=== PATIENT | male | born 1955 | race Caucasian/White ===

== ENCOUNTER 2019-10-29 13:50 | Outpatient (CLI) | payer OTHER, SELFPAY ==
[2019-10-29 15:53] LABS: Basophils # 0.1 10^3/uL (0.0-0.1); Eosinophils # 0.5 10^3/uL (0.0-0.8); Eosinophils % 3.5 %; Hematocrit 46.8 % (42.0-52.0); Hemoglobin 15.2 g/dL (11.7-16.6); Lymphocytes # 3.5 10^3/uL (0.8-4.8); Lymphocytes % 23.6 %; Mean Corpuscular HGB Conc 32.5 g/dL (30.0-36.0); Mean Corpuscular Hemoglobin 30.4 pg (28.0-34.0); Mean Corpuscular Volume 93.6 fL (80-94); Mean Platelet Volume 10.7 fL (7.4-10.4); Monocytes # 1.1 10^3/uL (0.2-0.9); Monocytes % 7.6 %; Neutrophils # 9.4 10^3/uL (1.8-7.7); Neutrophils % 63.8 %; Nucleated Red Blood Cells % 0 %; Platelet Count 276 10^3/cmm (130-400); Red Cell Distribution Width 16.2 % (12.1-15.1); White Blood Count 14.7 10^3/uL (4.0-10.0)
[2019-10-29 16:14] LABS: Alanine Aminotransferase 11 U/L (0-41); Albumin Level 4.4 g/dL (3.5-5.2); Alkaline Phosphatase 103 IU/L (40-130); Anion Gap 13.1 (5-19); Aspartate Amino Transferase 16 U/L (0-40); Blood Urea Nitrogen 24 mg/dL (8-23); Calcium 10.2 mg/Dl (8.8-10.2); Carbon Dioxide 26 mmol/L (22-29); Chloride 101 mmol/L (98-107); Globulin 3.3 g/dL (1.3-4.6); Glomerular Filtration Rate 60.8 mL/min (90-130); Glucose 86 mg/dL (74-106); Potassium 5.1 mmol/L (3.5-5.1); Sodium 135 mmol/L (136-145); Total Bilirubin 0.3 mg/dL (0.15-1.2); Total Protein 7.7 g/dL (6.6-8.7)
== END 2019-10-29 13:51 | disposition home or self-care (01) ==
LOC: ONCMED 14:46
PROVIDERS: Family Provider Emergency Medicine Emergency Medical Services; PCP Emergency Medicine Emergency Medical Services; Visit Provider Internal Medicine Hematology & Oncology
DX: C79.51 Secondary malignant neoplasm of bone (principal); C65.1 Malignant neoplasm of right renal pelvis
CPT/HCPCS: 80053; 85025

== ENCOUNTER 2019-10-30 09:40 | Outpatient (CLI) | payer OTHER, SELFPAY ==
--- NOTE | 2019-10-30 15:13 | ONC FU_ITS ---
Dr. Cardoza follow up note Patient: Bart Contreras Unit #: [id number]: 1955 Dicatated By: Rosi Cardoza M.D.Date of Visit:Oct 30, 2019 Onc Med Follow-up/Prog Note History of Present Illness: Mr. Bart Contreras, is a 63-year-old gentleman with history of off and on chronic back pain later on developed right flank pain subsequently in June 2019 started having off and on hematuria patient underwent CT scan of abdomen pelvis which showed significant filling defect of the right kidney patient underwent retrograde and ureteroscopy that showed high-grade, invasive urothelial carcinoma patient was referred to Dr. Gillis at [facility] in [place] for robotic surgery and on 08/20/2019 he underwent right nephroureterectomy and final pathology report showed 5 x 6 x 5 x 2 x 0.6 cm invasive urothelial carcinoma, high-grade, with clear surgical margins, lymphovascular invasion was seen. But tumor invades into the renal parenchyma , pT3 No lymph node was evaluated pNx ,Mx As per patient for the last one month or so now he got progressive mid back pain and MRI scan of spine is under consideration. Denies any hematuria denies any jaundice denies any hemoptysis or hematemesis denies any diarrhea or constipation, appetite is good. Denies any lower extremity numbness or focal weakness. Denies any urine or stool incontinence. 50+ year history of smoking still active. Patient did not go for MRI scan but CT PET scan done on 10/20/2019 showed multiple, lytic FDG positive osseous metastatic disease, T7 lesion has high likelihood of impending pathological fracture. Multifocal hepatic metastatic disease. Malignant adenopathy in the left supraclavicular, mediastinal, bilateral retroperitoneal territories Came for follow-up, complaining of mid back pain 3-4 on the scale of 1-10 now being controlled by anti-inflammatory and muscle relaxant patient has seen chiropractor and said it did help him. Denies any urine or stool incontinence denies any lower extremity weakness denies any hemoptysis hematemesis denies any jaundice denies any focal weakness. Medications: Amitriptyline HCl 1 Tablet (of 25 mg) Oral at bedtime PRN, Aspirin Adult 1 Tablet (of 325 mg) Oral daily, Atorvastatin Calcium 1 Tablet (of 80 mg) Oral daily, Methocarbamol 1 Tablet (of 500 mg) Oral t.i.d. PRN, Metoprolol Tartrate 1 Tablet (of 50 mg) Oral daily, Naproxen 1 Tablet (of 500 mg) Oral b.i.d. Allergies: Penicillins Review of Systems: Constitutional - Appetite is poor and weight is decreasing. No fever, chills, hot flashes, or night sweats. Energy level is poor, ENMT - Positive for sinus congestion/drainage. No mouth sores. No sore throat or difficulty swallowing, Hematologic/Lymphatic - Pt reports easy bruising, Respiratory - Positive for shortness of breath. No cough. No pleuritic pain or hemoptysis, Cardiovascular - No angina pain. No palpitations, Gastrointestinal - No nausea or vomiting. No heartburn or acid reflux. No diarrhea. Positive for constipation. No blood in the stool or black stools, Genitourinary (M) - No dysuria or hematuria. Positive for urinary frequency. No urgency or incontinence, Musculoskeletal - No joint or bone pain, Neurologic - No headache. Positive for occasional dizziness. No numbness/paresthesias or other focal neurologic symptoms, Psychiatric - Positive for depression and insomnia. Vital Signs: Performed on Oct 30, 2019 12:49 Height - 68.00 in Weight - 106.0 lbs (LOW) BSA - 1.56 sq.m BMI - 16.12 (LOW) Temperature - 97.8 F (LOW) Pulse - 84 /min Respiration - 20 /min BP - 116/73 mm(hg) O2 Sat - 100 % Pain - 6 Performance Status: 1 - No physically strenuous activity, but ambulatory and able to carry out light or sedentary work (e.g. office work, light house work). (ECOG) Physical Examination: ENMT - No oral exudates, ulcers, masses, thrush or mucositis. Oropharynx clear. Tongue normal, Respiratory - Lungs are clear to auscultation without rhonchi or wheezing, Cardiovascular - Regular rate and rhythm of heart, Abdomen - Non-tender, non-distended,Good bowel sounds. No guarding or rebound tenderness. No pulsatile masses, Extremities - no edema. Lab/Imaging: Test performed on Oct 29, 2019 13:50 Glucose 86 mg/dL BUN 24 mg/dL Creatinine 1.2 mg/dL Cr Clearance (Est) 41.7400 mL/min Sodium 135 mmol/L Potassium 5.1 mmol/L Chloride 101 mmol/L CO2 26 mmol/L Calcium 10.2 mg/dL Protein, Total 7.7 g/dL Albumin 4.4 g/dL Globulin 3.3 g/dL Bilirubin, Total 0.3 mg/dL Alkaline Phosphatase 103 IU/L AST (SGOT) 16 IU/L ALT (SGPT) 11 IU/L WBC 14.7 10^9/L RBC 5.00 10^12/L HGB 15.2 g/dL HCT 46.8 % MCV 93.6 fl MCH 30.4 pg MCHC 32.5 g/dL RDW 16.2 % Platelet Count 276 10^9/L MPV 10.7 fL Neutrophils (Gran) 9.4 10^9/L Lymphocytes 3.5 10^9/L Monocytes 1.1 10^9/L Eosinophils 0.5 10^9/L Basophils 0.1 10^9/L Neutrophil % 3.5 % Manual Lymphocytes 23.6 % Manual Monocytes 7.6 % Manual Eosinophils 3.5 % Manual Basophils 1.0 % NRBCs 0.0 /100 WBC Impression: iMetastatic disease probably urothelial carcinoma per CT PET scan done on 10/20/2019 nvasive urothelial carcinoma Involving right renal pelvis status post nephroureterectomy done on 08/20/2019 Final pathology report showed invasive tumor 5.6 x 5.2 x 0.6 cm, high-grade, tumor invades into renal parenchyma, pT3 Lymphovascular invasion present No lymph nodes were evaluated pNx 2. Progressive Back pain, etiology unclear metastatic disease versus musculoskeleton in origin Follow-up CT PET scan done on 10/20/2019 showed extensive metastatic disease involving spine more prominent in T7 with it erodes nearly all of the vertebral body with SUV of 9.9 and also involvement of T4, T7, T8, T11, L3, L4, sternum sacrum, left iliac left acetabulum, left pubic. And bilateral retroperitoneal lymph nodes as well as left supraclavicular region and mediastinal, and paratracheal prevascular precarinal, left hilar territories with SUV of 9.8 Plan: Discussed with patient regarding his labs white blood count 14.7 hemoglobin 15.2 crit 46.8 platelets 276,000 CMP within normal limits calcium 10.2 Clinically, patient doing reasonably well now symptomatic due to mid back pain which is under control with muscle relaxant/anti-inflammatory. CT PET scan findings were discussed with patient, clinically he has stage IV disease with extensive osseous metastatic disease as well as liver metastases and extensive central lymphadenopathy We will give him prescription for Percocet 5/325 he will take 1-2 tablets 4-6 hours as needed and also starting on dexamethasone 4 mg 3 times a day for 1 week then twice a day for 4 days then 2 mg twice a day for 3 days in the meantime we'll refer him to radiation oncology for evaluation for palliative radiation therapy and patient return to clinic 1 week after completion of radiation with CBC CMP and at that time we will discuss about palliative chemotherapy based on cisplatin/gemcitabine for carboplatin/centimeters depends on renal function test. We will also do consider Xgeva 120 mg IV monthly to prevent skeletal related complication.patient was advised In case he has any evidence of lower extremity weakness or numbness or urine or stool incontinence he need to go to emergency room immediately and he was also advised to not to consider chiropractor services and also advised to use thoracic brace especially when he up and moving. Signed By: Rosi Cardoza M.D. <<Signature on File>>
== END 2019-10-30 09:41 | disposition home or self-care (01) ==
LOC: ONCMED 09:40
PROVIDERS: Family Provider Emergency Medicine Emergency Medical Services; PCP Emergency Medicine Emergency Medical Services; Visit Provider Internal Medicine Hematology & Oncology
DX: C65.1 Malignant neoplasm of right renal pelvis (principal); C79.51 Secondary malignant neoplasm of bone; C78.7 Secondary malignant neoplasm of liver and intrahepatic bile duct; C77.8 Secondary and unspecified malignant neoplasm of lymph nodes of multiple regions; G89.29 Other chronic pain; M54.9 Dorsalgia, unspecified; F17.210 Nicotine dependence, cigarettes, uncomplicated; Z90.5 Acquired absence of kidney
CPT/HCPCS: 99214

== ENCOUNTER 2019-11-07 07:25 | Day surgery (SDC) | payer OTHER, SELFPAY ==
--- NOTE | 2019-11-07 07:46 | SC_ITS ---
WS: [id number] C-ARM RADIOGRAPHS CHEST; 2 IMAGES HISTORY: port COMPARISON: None available. Intraoperative imaging performed Port-A-Cath placement. SC/C-arm FL for CVA [id number] IMPRESSION: Intraoperative imaging for Port-A-Cath placement.
[2019-11-07 07:51] VITALS: BMI 16.7
[2019-11-07 07:55] VITALS: BP 158/98; PULSE 88; RESP 18; TEMP 37.1; O2SAT 98
[2019-11-07] MEDS: sodium chloride 0.9% 1,000 ML 30 ML IV (08:04)
[2019-11-07] MEDS: vancomycin 1,000 MG in sodium chloride 0.9% 250 ML 250 MG IV (08:07)
--- NOTE | 2019-11-07 08:34 | ANES.PREANES ---
Pre-Anesthetic Assessment Pre-Anesthetic Assessment: Height/Weight: Height 1.73 m Weight 49.895 kg Temp Pulse Resp BP Pulse Ox 98.7 F 88 18 158/98 98 11/07/19 07:55 11/07/19 07:55 11/07/19 07:55 11/07/19 07:55 11/07/19 07:55 Preop Diagnosis: Bladder cancer requiring chemotherapy Proposed Procedure: Operation Date: 11/07/19 09:35 Proposed Procedures p Portacath Placement 98403 C65.1(Not Applicable) - Narciso Francois MD Last intake: Intake Last Liquid Date 11/07/19 Last Liquid Time 07:00 Last Solid Date 11/06/19 Last Solid Time 22:30 Social: Social History: Tobacco Exam: Pre-Anes Outpt Exam: alert, oriented x 3, clear to auscultation bilaterally and regular rate & rhythm Airway: Submandibular: WNL Cervical ROM: WNL MP: 2 Dentition: Full History/ROS: No significant history except as noted Pulmonary: Pulmonary: PALACIOS CV/HEM: CV/HEM: CAD, HTN, [place] and PVD Comments: PTCA 2011 : Comments: Renal CA Hepatic: Hepatic: None reported GI: GI: GERD Metabolic: Metabolic: Hyperlipidemia Musc/skel: Musc/skel: Lower Back Pain Neuropsych: Neuropsych: Anxiety and Depression Anesthetic Plan: ASA status: III Anesthesia: Anesthesia Evaluation and MAC Risk of > 500 ml blood loss (7ml/kg in children): No Meds/Allergies Current Medications: Current Medications Generic Name Dose Route Start Last Admin Trade Name Freq PRN Reason Stop Dose Admin Vancomycin HCl 1,0 00 mg/ 250 mls @ 250 mls /hr 11/07/19 07:46 11/07/19 08:07 Sodium Chloride IV 11/07/19 08:45 250 mls/hr ONCE ONE Administration Protocol Sodium Chloride 1,000 mls @ 30 ml s/hr 11/07/19 08:00 11/07/19 08:04 Sodium Chloride 0.9% IV 11/08/19 07:59 30 mls/hr .Q24H SHADI Administration PFSH Anesthesia PFSH: Medical History COPD (chronic obstructive pulmonary disease) (Acute) Depression (Acute) Dyslipidemia (Acute) Metastatic transitional cell carcinoma to bone (Acute) Myocardial infarction (Acute) PAD (peripheral artery disease) (Acute) Transitional cell carcinoma of right kidney (Chronic) Surgical History History of circumcision (Acute) History of colonoscopy (Acute 2007) History of coronary artery stent placement (Acute) 5x History of hernia repair (Acute) Right, Left, Groin History of mandibular surgery (Acute) multiple times over 2 years History of surgical removal of left nipple (Acute 06/28/19) Excision of left nipple areolar complex Port-A-Cath in place (Acute) Family History Son Anesthesia complication Father CAD (coronary artery disease) Cancer Bonce Cancer Mother , Age 96 Dementia Denies family history of Bleeding disorder Social History Smoking and tobacco status: current every day smoker cigarettes Packs smoked per day: 0.5 Alcohol intake: never Lives independently: Yes Household members: spouse Marital status: Current occupational status: retired History of recent travel: No Data Anesthesia Cardiac Studies: No Data to Display
--- NOTE | 2019-11-07 09:28 | PM.HPUD ---
H&P update H&P Update: DATE OF SURGERY/PROCEDURE: 11/07/19 DATE H&P PERFORMED: 11/06/19 H&P UPDATE INFORMATION: H&P completed within last 30 days and No changes to prior documentation PLANNED PROCEDURE: Operation Date: 11/07/19 09:35 Proposed Procedures p Portacath Placement 32806 C65.1(Not Applicable) - Narciso Francois MD Full H&P Medications/Allergies: Current Medications: Current Medications Generic Name Dose Route Start Last Admin Trade Name Freq PRN Reason Stop Dose Admin Sodium Chloride 1,000 mls @ 30 ml s/hr 11/07/19 08:00 11/07/19 08:04 Sodium Chloride 0.9% IV 11/08/19 07:59 30 mls/hr .Q24H SHADI Administration Perinent History: Medical/Surgical History: Medical History (Updated 11/07/19 @ 08:00 by Narciso Francois MD) COPD (chronic obstructive pulmonary disease) (Acute) Depression (Acute) Dyslipidemia (Acute) Metastatic transitional cell carcinoma to bone (Acute) Myocardial infarction (Acute) PAD (peripheral artery disease) (Acute) Transitional cell carcinoma of right kidney (Chronic) Family History: Family History (Updated 11/06/19 @ 08:45 by SAMM Sanon) Son Anesthesia complication Father CAD (coronary artery disease) Cancer Bonce Cancer Mother , Age 96 Dementia Denies family history of Bleeding disorder Social History: Social History Smoking and tobacco status: current every day smoker cigarettes Packs smoked per day: 0.5 Alcohol intake: never Lives independently: Yes Household members: spouse Marital status: Current occupational status: retired History of recent travel: No
[2019-11-07] MEDS: lidocaine 1% INJ 20 mL IM (10:23)
[2019-11-07] MEDS: heparin, porcine 1,000 unit/mL INJ 10 mL 10000 UNIT IRRIGATION (10:35)
[2019-11-07 10:50] VITALS: BP 135/77; PULSE 99; RESP 18; TEMP 36.3; O2SAT 99
--- NOTE | 2019-11-07 10:51 | P.OP_ITS ---
Operative Report Date of procedure: 11/07/19 Pre-op Diagnosis: Metastatic renal cancer requiring central venous access for chemotherapy Post-op diagnosis: same Procedure Done: Placement of PowerPort in the left subclavian vein under fluoroscopic guidance Fluoroscopic guidance and interpretation for placement of catheter Pathology: none sent Surgeon: Narciso Francois Anesthesia: MAC Condition: stable Disposition: same day Procedure: The patient was taken to the Operating Room and the chest and neck bilaterally were prepped and draped in a sterile manner after the antibiotic had been administered and shoulder rolls had been placed. A total of 10 mL of 1% lidocaine with 0.5% Marcaine was infiltrated under the clavicle on the left side at the site of the planned entry into the subclavian vein. An introducer needle was then used to access the subclavian vein under the clavicle and after withdra wing blood syringe was removed and a guidewire passed under fluoroscopy into the superior vena cava. The site of the planned port was then marked on the chest and a 15 blade was used to make a 3 cm skin incision this was extended into the subcutaneous tissue using electrocautery and a subcutaneous pocket over the pectoralis fascia was created 2-0 Vicryl suture was used to suture the port to the pectoral fascia in the pocket on 3 sides. The catheter, after having been flushed with hep saline, was attached to the tunneler and a tunnel created between the port site and the subclavian vein entry site. Under fluoroscopy the dilator sheath was passed over the guidewire into the proximal superior vena cava. The inner dilator was removed and the sheath left behind and~ the catheter was introduced through the peel-away sheath with the tip in the superior vena cava. The peel-away sheath was removed. The proximal end of the catheter was cut to the right size and was attached to the port. Using a Villa needle the port was accessed, it withdrew blood easily and flushed easily. A final 5cc of heparin was used to flush the Mediport. The subcutaneous tissue was approximated using interrupted 3-0 Vicryl sutures and the skin at the introducer site and the port site was closed using subcuticular running 4-0 Monocryl sutures. Dermabond was applied and the patient was stable throughout the procedure. Fluoroscopic guidance and interpretation was performed for introduction of the guidewire in the right subclavian vein, passage of dilator and placement of catheter tip in the distal superior vena cava.
[2019-11-07 11:22] VITALS: BP 137/83; PULSE 96; RESP 18; TEMP 36.3; O2SAT 99
== END 2019-11-07 11:55 | disposition home or self-care (01) ==
PROVIDERS: Family Provider Emergency Medicine Emergency Medical Services; PCP Emergency Medicine Emergency Medical Services; Visit Provider Surgery
PROC: (CPT 36561; principal; 2019-11-07 09:35)
DX: C64.1 Malignant neoplasm of right kidney, except renal pelvis (principal); J44.9 Chronic obstructive pulmonary disease, unspecified; E78.5 Hyperlipidemia, unspecified; Z82.49 Family history of ischemic heart disease and other diseases of the circulatory system; F17.210 Nicotine dependence, cigarettes, uncomplicated; Z79.82 Long term (current) use of aspirin; Z79.891 Long term (current) use of opiate analgesic; F32.9 Major depressive disorder, single episode, unspecified; I25.2 Old myocardial infarction
CPT/HCPCS: 36561; 12345; 76000; 77001; 96365; C1788; J1644; J2001; J2405; J2704; J2765; J3010; J3370; J3490; J7030; J7050

== ENCOUNTER 2019-11-13 08:10 | Outpatient (CLI) | payer OTHER, SELFPAY ==
--- NOTE | 2019-11-13 08:19 | MR_ITS ---
WS: [id number] MRI THORACIC SPINE WITHOUT CONTRAST TECHNIQUE: Sagittal T1, T2 and STIR imaging. Axial T2 imaging. Noncontrast imaging obtained. CLINICAL INFORMATION: CHRONIC PAIN COMPARISON: PET CT 1 FINDINGS: Mild thoracic kyphosis. Mild thoracic curve. Metastatic marrow replacing lesions scattered throughout the thoracic spine. These are more prominent at T4, T7, T9, T11, L1, and L2. Associated edema at the se levels. Pathologic compression at T7 with anterior wedging and loss of approximately 30% vertebral body height anteriorly. Minimal retropulsion of the posterior cortex with mild central canal stenosi s. Smaller lesions involving the posterior elements. Mild bilateral T7-T8 foraminal narrowing. Normal visualized thoracic aorta. Moderate facet arthropath y lower thoracic spine. Partially visualized innumerable T2 hyperintense lesions in the liver likely due to metastatic disease. Mediastinal and subcarinal lymphadenopathy. MR/MR thoracic spin wo con* [id number] IMPRESSION: 1. Multiple bony metastatic lesions scattered throughout the thoracic spine mo re prominent at T4 and T7. 2. Additional notable lesions at T9, T11, L1, and L2. Additional smaller lesio ns involving the posterior elements. 3. Pathologic compression at T7 with anterior wedging and mild central canal s tenosis. Minimal retropulsion of the posterior cortex. 4. Diffuse hepatic metastatic disease partially visualized with anterior media stinal and subcarinal lymphadenopathy. This could be further evaluated with CT chest abdomen and pelvis.
--- NOTE | 2019-11-13 08:20 | MR_ITS ---
WS: [id number] MRI LUMBAR SPINE NONCONTRAST TECHNIQUE: Sagittal T1, T2 and STIR imaging. Axial T1 and T2 imaging. CLINICAL INFORMATION: LUMBAR PAIN COMPARISON: None. FINDINGS: Multiple bony metastatic lesions lower thoracic, lumbar spine, and sacrum. Additional lesions in the posterior elements. Prominent lesion involving the spinous process at L3 with edema measuring 2.6 CM. Largest lesion involving the L4 vertebral body with edema. Additional notable lesions at T11, L1, L2 , L3, and sacrum at S3. No acute compression fractures. No high-grade central canal stenosis. L1-L2: Mild annular bulging. Mild facet arthropathy. Spinal canal and foramen are patent. L2-L3: Mild annular bulging. Mild central canal stenosis. Narrowing of the subarticular recess bilate rally. Mild bilateral foraminal narrowing. L3-L4: Mild annular bulging. Mild facet arthropathy. Spinal canal and foramen are patent. L4-L5: Left pericentral disc protrusion impinges the traversing left L5 nerve root in the left subart icular recess. Annular tear. Mild left and no significant right foraminal narrowing. Moderate facet a rthropathy. Mild central canal stenosis. L5-S1: Broad-based right pericentral disc protrusion contacts the right S1 nerve root. Mild central c anal stenosis. Mild right and no significant left foraminal narrowing. Mild facet arthropathy. Innumerable metastatic lesions partially visualized in the right hepatic lobe. Partially visualized a bdominal aortic aneurysm measuring approximately 3.5 cm partially visualized. Nonspecific fatty atten uation lesion along the right psoas measuring 2.8 cm. MR/MR lumbar spine wo con* [id number] IMPRESSION: 1. Numerous bony metastatic lesions lower thoracic, and lumbar spine. Involvem ent of the posterior elements. Additional metastatic disease involving the sacr um partially visualized. 2. No high-grade central canal stenosis. 3. Largest lesion involves the L4 vertebral body. Notable lesion involving the posterior elements at L3. 4. Additional notable lesions at T11, L1, L2, L3, and S3. 5. Left pericentral disc protrusion L4-5 impinges the traversing left L5 nerve root with an annular tear. Mild central canal stenosis. 6. Right pericentral disc protrusion L5-S1 with a small annular tear and impin gement on the right S1 nerve root. 7. Partially visualized innumerable metastatic lesions in the right hepatic lo be. 8. Partially visualized abdominal aortic aneurysm measuring approximately 3.5 cm in AP dimension.
== END 2019-11-13 08:11 | disposition home or self-care (01) ==
LOC: RADWPI 08:12
PROVIDERS: Family Provider Emergency Medicine Emergency Medical Services; PCP Emergency Medicine Emergency Medical Services; Visit Provider Emergency Medicine Emergency Medical Services
DX: C78.7 Secondary malignant neoplasm of liver and intrahepatic bile duct (principal); C79.51 Secondary malignant neoplasm of bone; C79.49 Secondary malignant neoplasm of other parts of nervous system; M51.26 Other intervertebral disc displacement, lumbar region; M51.27 Other intervertebral disc displacement, lumbosacral region; M48.04 Spinal stenosis, thoracic region; I71.4 Abdominal aortic aneurysm, without rupture; G89.29 Other chronic pain
CPT/HCPCS: 72146; 72148

== ENCOUNTER 2019-11-16 05:47 | Outpatient (RCR) | payer OTHER, SELFPAY ==
--- NOTE | 2019-11-01 15:02 | N.ONRAD NP_ITS ---
Radiation Oncology New Patient Visit Patient: Bart Contreras MR#: [id number] : 1955> Age: 64> Sex: Male> Dictated by: Dr. Pipe Badillo Date of Service: 11/01/2019 Referring Physician(s) : Rosi Cardoza Primary Diagnosis: C65.1 - malignant neoplasm of right renal pelvis, Diagnosed 10/08/2019 (active). Chief complaint: Severe back pain History of Present Illness: This is a 63-year-old gentleman with 120+ -pack-year history of smoking who presented with hematuria that started in June 2019. CT of abdomen pelvis showed significant filling defect of the right kidney. He underwent a retrograde ureteroscopy with biopsy that showed high-grade invasive urothelial carcinoma. He was referred to Dr. Gillis at [facility] in [place] who performed right nephroureterectomy on August 20, 2019. Pathology showed a 5.6 x 5.2 x 0.6 cm invasive urothelial carcinoma, high-grade, invading into renal parenchyma. Surgical margins are negative. Lymphovascular invasion was present. Staging was pT3, pNx, Mx. The patient has recovered from the surgery well. He developed significant mid upper back pain with no radiating pain or focal neurological deficits. He underwent a PET/CT on October 20, 2019. It showed FDG avid multifocal osseous metastatic disease in the right scapula, right pedicle of T4, T7, T8, T11, sternum, sacrum, left iliac, left acetabulum, left pubic ramus L3 spinous process and L4 vertebral body. The lytic lesion at the T7 erodes nearly all of the vertebral body with an SUV of 9.9 and carries a high risk of pathological fracture. There are multifocal liver metastasis and malignant adenopathy in the left supraclavicular, mediastinal and bilateral retroperitoneal territories. Current Medications: Amitriptyline HCl, aspirin Adult, atorvastatin Calcium, dexamethasone, docusate Sodium, metoprolol Tartrate, oxyCODONE-Acetaminophen. Allergies: Penicillins. Medical History: - Chronic obstructive pulmonary disease, - coronary artery disease, - depression, - dyslipidemia, - peripheral artery disease. No history of collagen vascular disease. No previous radiation therapy. Surgical History: Excision of left breast lymph node in 1999, full mouth dental extraction in 2000, left inguinal hernia repair in 1963, left mastectomy in 05/2019, multiple madibular surgeries, right inguinal hernia repair in 2016 and right nephroureterectomy on 08/17/2019. Family History: Father is at age 66 having experienced bone cancer. Mother is at age 92 having experienced dementia. Social History: Last screened on 11/01/2019 - Current every day smoker 2.5 packs/day for 51 years (127.5 pack years). Last screened on 11/01/2019 - Past drinker. Just curently started smoking 1/2 pack per day. Review of Systems: Constitutional - Complains of lack of appetite. Complains of mild fatigue. Complains of low grade fever. Complains of night sweats which occur occasionally. Complains of rigors / chills occurring frequently. Denies change in weight. Eyes - Denies blurred vision and double vision. ENMT - Complains of ear pain on the left side occasionally. Complains of altered taste due to having a broken jaw many years ago. Complains of tinnitus. Denies dysphagia, mouth dryness and stomatitis. Neck - Denies neck pain. Integumentary - Complains of rash in which he has history of having psoriasis. Cardiovascular - Denies arrhythmias and chest pain. Respiratory - Complains of a mild cough. Complains of chronic dyspnea associated with normal activity. Complains of hiccoughs has had them off and on since last night. Complains of wheezing. Gastrointestinal - Complains of abdominal pain, constipation and vomiting which happened yesterday. Denies diarrhea, heartburn / dyspepsia, melena / GI bleeding and nausea. Genitourinary (M) - Complains of nocturia gets up about 1 to 2 times per night. Denies dysuria, frequency, hematuria and urgency. Has to push and strain to begin urinantion. Musculoskeletal - Complains of bone pain middle of the back and rib cage. Complains of generalized muscle weakness. Neurologic - Complains of dizziness occasionally with stooping. Denies abnormal gait and headaches. Endocrine - Denies diabetes and thyroid disease. Hematologic/Lymphatic - Denies tender or enlarged lymph nodes.. Vital Signs: Performed on 11/01/2019 11:25 AM BMI - 16.878 kg/m2 (low), Height - 68.00 in, Weight - 111.0 lbs, Temperature - 97.5 f, Pulse - 91, Respiration - 20, O2 Sat - 95 % (low), Pain - 5 and BP - 109/ 71 mm(hg). Physical Exam: Pertinent to diagnosis and treatment. General: Alert and oriented x 3. No acute distress. HEENT: Normocephalic, atraumatic. EOMI ( Extraocular Movements Intact), PERRLA ( Pupils Equal, Round, Reactive to Light and Accommodation), Sclerae anicteric. Oral cavity is clear without lesions, masses or ulcers. NECK: Supple without supraclavicular or jugular lymphadenopathy. LUNGS: Decrease breath sound to auscultation bilaterally without rales, rhonchi or wheeze. HEART: Regular rate and rhythm, normal S1 and S2 without murmur, gallop or rub. MUSCULOSKELETAL: Tenderness over T7 spine. ABDOMEN: Soft, nontender, nondistended without masses or organomegaly. Bowel sounds are present. EXTREMITIES: No peripheral edema is identified. Limited motor and sensory examination are grossly intact and symmetric bilaterally. NEUROLOGIC: Cranial nerves II ???XII are grossly intact. Normal sensation, strength 5/5 in all extremities, normal gait, no ataxia. Performance Status: 2 - Ambulatory/capable of all self-care, unable to perform any work activities. Up and about more than 50% of waking hours. (ECOG) Pathology: High-grade urothelial carcinoma Lab: Test performed on 10/29/2019 1:50 PM WBC - 14.7 10^9/l (high), RDW - 16.2 % (high), Neutrophils (Gran) - 9.4 10^9/l (high), Monocytes - 1.1 10^9/l (high), Eosinophils - 0.5 10^9/l (high) and Cr Clearance (Est) - 41.7400 ml/min (low). Imaging: See HPI Impression: This is a 63-year-old gentleman with a recently diagnosed a stage IV urothelial carcinoma involving the right kidney status post right nephroureterectomy. PET/CT showed diffuse metastasis bony lesions involving the T and L-spine, liver metastasis and a diffuse malignant lymphadenopathy. Plan: I recommended palliative radiation therapy to the T and L spine metastatic lesions to relieve pain and to prevent cord compression and pathological fracture. He will receive palliative systemic therapy (chemotherapy + immunotherapy) after radiotherapy. I went over the procedure for radiation therapy to the T and L spine with the patient. The benefit, risks and potential side effects of radiotherapy to the chest were explained to the patient. The potential side effects include but not limited to fatigue, skin reaction, radiation pneumonitis, esophagitis with odynophagia/dysphagia, damages to the heart/vessels, bowels, bones and spinal cord. Mr. Contreras expressed good understanding and decided to proceed with the recommended treatment. The patient has signed an informed consent for radiotherapy. He will come back for CT simulation as soon as the [facility] authorization is obtained. Signed by: 11/01/2019 3:01:17 PM <<Signature on File>> CPT Code: CPT Code: Signed By: Dr. Pipe Badillo, 11/01/2019 3:01:18 PM <<Signature on File>>
--- NOTE | 2019-11-06 | CTR_ITS ---
Radation Therapy Planning CT images; total exam DLP: 411.48 mGy-cm MTDD
--- NOTE | 2019-11-12 15:13 | ONCRAD TMN_ITS ---
Radiation Oncology Weekly Treatment Management Patient: Bart Contreras MR#: [id number] : 1955 Age: 64 Sex: Male Dictated by: Dr. Pipe Badillo Date of Service: 11/08/2019 Referring Physician(s) : Rosi Cardoza M.D. 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 ID: T Spine, Energy: 15X/6X, Dose/Fx (cGy): 300, #Fx: 10, Dose Correction (cGy): 0, Total Dose (cGy): 300, Start Date: 11/08/2019, Elapsed Days: 0 Course: Spine 2019, Treatment Site: L SPINE 30Gy, Ref. ID: L Spine, Energy: 15X/6X, Dose/Fx (cGy): 300, #Fx: 10, Dose Correction (cGy): 0, Total Dose (cGy): 300, Start Date: 11/08/2019, Elapsed Days: 0 Course: Spine 2019, Treatment Site: T4 SPINE 30Gy, Ref. ID: C Spine, Energy: 15X, Dose/Fx (cGy): 300, #Fx: 10, Dose Correction (cGy): 0, Total Dose (cGy): 300, Start Date: 11/08/2019, Elapsed Days: 0 Current Complaints/Interval History: Constitutional Complains of moderate fatigue. Complains of night sweats which occur occasionally. Denies lack of appetite, fever and change in weight. ENMT Denies odynophagia or dysphagia. Respiratory Complains of a mild cough. Complains of mild dyspnea associated with normal activity. Complains of wheezing. Denies hemoptysis. Gastrointestinal Complains of persistent constipation. Complains of nausea. Denies abdominal pain, diarrhea, melena / GI bleeding and vomiting. Musculoskeletal Complains of bone pain in the back. Current Medications: Amitriptyline HCl, aspirin Adult, atorvastatin Calcium, dexamethasone, docusate Sodium, metoprolol Tartrate, norco, oxyCODONE-Acetaminophen. Allergies: Penicillins. Vital Signs: Performed on 11/08/2019 11:34 AM BMI - 16.786 kg/m2 (low), Height - 68.00 in, Weight - 110.4 lbs, Temperature - 97.5 f, Pulse - 64, Respiration - 20, O2 Sat - 97 %, Pain - 5 and BP - 124/ 79 mm(hg). Physical Exam: Appears stable, no skin erythema or desquamation. Performance Status: 2 - Ambulatory/capable of all self-care, unable to perform any work activities. Up and about more than 50% of waking hours. (ECOG) Lab: None pending in Radiation Oncology. Imaging: No new diagnostic imaging was performed since the last weekly treatment visit. All radiation therapy related imaging (including but not limited to kV, MV, and CBCT generated images) was reviewed. Appropriate changes, if any, were made to assure accurate target localization. Impression/Plan: Started RT today. Continue treatment as planned. CPT: 88239 Signed by: Dr. Pipe Badillo>11/12/2019 3:12:26 PM <<Signature on File>>
--- NOTE | 2019-11-20 11:37 | ONCRAD TMN_ITS ---
Radiation Oncology Weekly Treatment Management Patient: Bart Contreras MR#: [id number] : 1955 Age: 64 Sex: Male Dictated by: Dr. Pipe Badillo Date of Service: 11/15/2019 Referring Physician(s) : Rosi Cardoza M.D. 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 ID: T Spine, Energy: 15X/6X, Dose/Fx (cGy): 300, #Fx: 6 / 10, Dose Correction (cGy): 0, Total Dose (cGy): 1,800, Start Date: 11/08/2019, Elapsed Days: 7 Course: Spine 2019, Treatment Site: L SPINE 30Gy, Ref. ID: L Spine, Energy: 15X/6X, Dose/Fx (cGy): 300, #Fx: 6 / 10, Dose Correction (cGy): 0, Total Dose (cGy): 1,800, Start Date: 11/08/2019, Elapsed Days: 7 Course: Spine 2019, Treatment Site: T4 SPINE 30Gy, Ref. ID: C Spine, Energy: 15X, Dose/Fx (cGy): 300, #Fx: 6 / 10, Dose Correction (cGy): 0, Total Dose (cGy): 1,800, Start Date: 11/08/2019, Elapsed Days: 7 Current Complaints/Interval History: Constitutional Complains of lack of appetite, moderate fatigue and occasional night sweats. Denies fever. Respiratory Denies cough, dyspnea and wheezing. Gastrointestinal Complains of constipation. Denies odynophagia, dysphagia, abdominal pain, diarrhea, heartburn / dyspepsia, GI bleeding, nausea and vomiting. Musculoskeletal Notes lower back pain has improved. Mid back pain is improving slightly. Current Medications: Amitriptyline HCl, aspirin Adult, atorvastatin Calcium, dexamethasone, docusate Sodium, metoprolol Tartrate, norco, oxyCODONE-Acetaminophen. Allergies: Penicillins. Vital Signs: Performed on 11/15/2019 3:37 PM BMI - 16.209 kg/m2 (low), Height - 68.00 in, Weight - 106.6 lbs, Temperature - 98.5 f, Pulse - 97, Respiration - 20, O2 Sat - 99 %, Pain - 4 and BP - 112/ 72 mm(hg). Physical Exam: Appears stable, no skin erythema or desquamation. Performance Status: 2 - Ambulatory/capable of all self-care, unable to perform any work activities. Up and about more than 50% of waking hours. (ECOG) Lab: None pending in Radiation Oncology. Imaging: No new diagnostic imaging was performed since the last weekly treatment visit. All radiation therapy related imaging (including but not limited to kV generated images) was reviewed. Appropriate changes, if any, were made to assure accurate target localization. Impression/Plan: Tolerating treatment well with good response. Continue treatment as planned. CPT: 52391 Signed by: Dr. Pipe Badillo>11/20/2019 11:36:58 AM <<Signature on File>>
== END 2019-11-16 23:59 | disposition home or self-care (01) ==
LOC: ONCMED 05:47
PROVIDERS: Family Provider Emergency Medicine Emergency Medical Services; PCP Emergency Medicine Emergency Medical Services; Visit Provider Radiology Radiation Oncology
DX: Z51.0 Encounter for antineoplastic radiation therapy (principal); C79.51 Secondary malignant neoplasm of bone; C65.1 Malignant neoplasm of right renal pelvis; C78.7 Secondary malignant neoplasm of liver and intrahepatic bile duct; C77.8 Secondary and unspecified malignant neoplasm of lymph nodes of multiple regions; G89.3 Neoplasm related pain (acute) (chronic); K59.00 Constipation, unspecified; Z79.82 Long term (current) use of aspirin; Z79.891 Long term (current) use of opiate analgesic; Z90.5 Acquired absence of kidney; Z90.12 Acquired absence of left breast and nipple
CPT/HCPCS: 77263; 77280; 77290; 77295; 77300; 77334; 77336; 77387; 77412; 77470; 99205

== ENCOUNTER 2019-12-03 05:38 | Outpatient (RCR) | payer OTHER, SELFPAY ==
[2019-11-21] MEDS: sodium chloride 0.9% 500 ML 999 ML IV (15:34)
[2019-12-03 15:22] LABS: Basophils # 0.1 10^3/uL (0.0-0.1); Basophils % 0.3 %; Eosinophils % 0.1 %; Hematocrit 32.4 % (42.0-52.0); Hemoglobin 10.9 g/dL (11.7-16.6); Lymphocytes # 1.2 10^3/uL (0.8-4.8); Lymphocytes % 4.5 %; Mean Corpuscular HGB Conc 33.6 g/dL (30.0-36.0); Mean Corpuscular Hemoglobin 29.6 pg (28.0-34.0); Mean Platelet Volume 10.6 fL (7.4-10.4); Monocytes % 7.6 %; Neutrophils % 84.3 %; Nucleated Red Blood Cells % 0 %; Platelet Count 301 10^3/cmm (130-400); Red Blood Count 3.68 10^6/uL (4.1-5.3); Red Cell Distribution Width 15.6 % (12.1-15.1); White Blood Count 26.1 10^3/uL (4.0-10.0)
[2019-12-03 15:34] LABS: Alanine Aminotransferase 47 U/L (0-41); Albumin Level 2.3 g/dL (3.5-5.2); Alkaline Phosphatase 300 IU/L (40-130); Anion Gap 18.6 (5-19); Aspartate Amino Transferase 51 U/L (0-40); Blood Urea Nitrogen 38 mg/dL (8-23); Calcium 9.3 mg/dL (8.5-10.5); Carbon Dioxide 26 mmol/L (22-29); Chloride 95 mmol/L (98-107); Globulin 4.4 g/dL (1.3-4.6); Glucose 139 mg/dL (65-115); Potassium 4.6 mmol/L (3.5-5.1); Sodium 135 mmol/L (136-145); Total Bilirubin 1.3 mg/dL (0.15-1.2); Total Protein 6.7 g/dL (6.6-8.7)
[2019-12-03] MEDS: sodium chloride 0.9% 1,000 ML 999 ML IV (15:39)
--- NOTE | 2019-12-03 16:42 | ONC FU_ITS ---
Dr. Cardoza follow up note Patient: Bart Contreras Unit #: [id number]: 1955 Dicatated By: Rosi Cardoza M.D.Date of Visit:Dec 03, 2019 Onc Med Follow-up/Prog Note History of Present Illness: Mr. Bart Contreras, is a 63-year-old gentleman with history of off and on chronic back pain later on developed right flank pain subsequently in June 2019 started having off and on hematuria patient underwent CT scan of abdomen pelvis which showed significant filling defect of the right kidney patient underwent retrograde and ureteroscopy that showed high-grade, invasive urothelial carcinoma patient was referred to Dr. Gillis at [facility] in [place] for robotic surgery and on 08/20/2019 he underwent right nephroureterectomy and final pathology report showed 5 x 6 x 5 x 2 x 0.6 cm invasive urothelial carcinoma, high-grade, with clear surgical margins, lymphovascular invasion was seen. But tumor invades into the renal parenchyma , pT3 No lymph node was evaluated pNx ,Mx As per patient for the last one month or so now he got progressive mid back pain and MRI scan of spine is under consideration. Denies any hematuria denies any jaundice denies any hemoptysis or hematemesis denies any diarrhea or constipation, appetite is good. Denies any lower extremity numbness or focal weakness. Denies any urine or stool incontinence. 50+ year history of smoking still active. Patient did not go for MRI scan but CT PET scan done on 10/20/2019 showed multiple, lytic FDG positive osseous metastatic disease, T7 lesion has high likelihood of impending pathological fracture. Multifocal hepatic metastatic disease. Malignant adenopathy in the left supraclavicular, mediastinal, bilateral retroperitoneal territories Status post radiation to the T-spine, T4, L-spine from 11/08/2019 to 11/21/2019 Came for follow-up, complaining of mid back pain 3-4 on the scale of 1-10 now being controlled by anti-inflammatory and muscle relaxant patient has seen chiropractor and said it did help him. Denies any urine or stool incontinence denies any lower extremity weakness denies any hemoptysis hematemesis denies any jaundice denies any focal weakness. Came for follow-up, denies any specific complaint except indigestion especially with orange juice and spices mild nausea and poor oral intake, felt better with hydration and antiemetic. Denies any fever chills. Tolerated radiation therapy to spine well now with good pain control but still requiring pain medication. Medications: Amitriptyline HCl 1 Tablet (of 25 mg) Oral at bedtime PRN, Aspirin Adult 1 Tablet (of 81 mg) Oral daily, Atorvastatin Calcium 0.5 Tablet (of 80 mg) Oral daily, Docusate Sodium 1 (100 mg) Capsule Oral daily, HYDROcodone-Acetaminophen 1 Tablet (of 10-325 mg) Oral q 4 to 6 hours PRN, Metoprolol Tartrate 0.5 Tablet (of 50 mg) Oral daily Allergies: Penicillins Review of Systems: Review of Systems is not available for this patient. Vital Signs: Performed on Dec 03, 2019 15:33 Height - 68.00 in Weight - 101 lbs (LOW) BSA - 1.53 sq.m BMI - 15.36 (LOW) Temperature - 98.6 F Pulse - 118 /min (HIGH) Respiration - 18 /min BP - 112/77 mm(hg) O2 Sat - 78 % (LOW) Pain - 2 Performance Status: 1 - No physically strenuous activity, but ambulatory and able to carry out light or sedentary work (e.g. office work, light house work). (ECOG) Physical Examination: ENMT - No oral exudates, ulcers, masses, thrush or mucositis. Oropharynx clear. Tongue normal, Respiratory - Lungs are clear to auscultation without rhonchi or wheezing, Cardiovascular - Regular rate and rhythm of heart, Abdomen - Non-tender, non-distended, Good bowel sounds. No guarding or rebound tenderness. No pulsatile masses, Extremities - 1+ edema bilaterally. Lab/Imaging: Test performed on Oct 29, 2019 13:50 Glucose 86 mg/dL BUN 24 mg/dL Creatinine 1.2 mg/dL Cr Clearance (Est) 41.7400 mL/min Sodium 135 mmol/L Potassium 5.1 mmol/L Chloride 101 mmol/L CO2 26 mmol/L Calcium 10.2 mg/dL Protein, Total 7.7 g/dL Albumin 4.4 g/dL Globulin 3.3 g/dL Bilirubin, Total 0.3 mg/dL Alkaline Phosphatase 103 IU/L AST (SGOT) 16 IU/L ALT (SGPT) 11 IU/L WBC 14.7 10^9/L RBC 5.00 10^12/L HGB 15.2 g/dL HCT 46.8 % MCV 93.6 fl MCH 30.4 pg MCHC 32.5 g/dL RDW 16.2 % Platelet Count 276 10^9/L MPV 10.7 fL Neutrophils (Gran) 9.4 10^9/L Lymphocytes 3.5 10^9/L Monocytes 1.1 10^9/L Eosinophils 0.5 10^9/L Basophils 0.1 10^9/L Neutrophil % 3.5 % Manual Lymphocytes 23.6 % Manual Monocytes 7.6 % Manual Eosinophils 3.5 % Manual Basophils 1.0 % NRBCs 0.0 /100 WBC Impression: iMetastatic disease probably urothelial carcinoma per CT PET scan done on 10/20/2019 nvasive urothelial carcinoma Involving right renal pelvis status post nephroureterectomy done on 08/20/2019 Final pathology report showed invasive tumor 5.6 x 5.2 x 0.6 cm, high-grade, tumor invades into renal parenchyma, pT3 Lymphovascular invasion present No lymph nodes were evaluated pNx 2. Progressive Back pain, etiology unclear metastatic disease versus musculoskeleton in origin Follow-up CT PET scan done on 10/20/2019 showed extensive metastatic disease involving spine more prominent in T7 with it erodes nearly all of the vertebral body with SUV of 9.9 and also involvement of T4, T7, T8, T11, L3, L4, sternum sacrum, left iliac left acetabulum, left pubic. And bilateral retroperitoneal lymph nodes as well as left supraclavicular region and mediastinal, and paratracheal prevascular precarinal, left hilar territories with SUV of 9.8 Plan: Discussed with patient regarding his labs white blood count 26.1 lobe and 10.9 crit 32.4 platelets 301,000 CMP within normal limit except glucose 139, alkaline phosphatase 300, AST 51, ALT 47, bilirubin 1.3, albumin 2.3 Clinically, patient is doing reasonably well, his back pain is under control with current pain medication, recently finished radiation therapy to spine with good pain control. At this point we'll consider palliative chemotherapy with cisplatin/gemcitabine, we'll modify his dose and start with split dose cisplatin 25 mg/m??? day 1 and 8 along with gemcitabine 850 mg/m??? day 1 and 8 and repeat every 21 days. And titrate up as tolerated while monitoring renal function test. All the side effect possible benefits acid with chemotherapy including but not limited to bone marrow suppression, nausea vomiting, hair loss, ototoxicity, nephrotoxicity especially with cisplatin were discussed further teaching will be done by chemotherapy nurse. We'll obtain approval from insurance prior to the treatment. In the meantime we'll continue hydration on as-needed basis. Mild leukocytosis probably due to steroids, no signs suggestive of infection. Signed By: Rosi Cardoza M.D. <<Signature on File>>
[2019-12-07] MEDS: HYDROcodone-acetaminophen 10-325 mg Tablet 1 TAB PO (09:41)
== END 2019-12-03 23:59 | disposition home or self-care (01) ==
LOC: ONCMED 05:38
PROVIDERS: Family Provider Emergency Medicine Emergency Medical Services; PCP Emergency Medicine Emergency Medical Services; Visit Provider Internal Medicine Hematology & Oncology
DX: Z51.0 Encounter for antineoplastic radiation therapy (principal); C79.51 Secondary malignant neoplasm of bone; C65.1 Malignant neoplasm of right renal pelvis; C78.7 Secondary malignant neoplasm of liver and intrahepatic bile duct; E86.0 Dehydration; G89.3 Neoplasm related pain (acute) (chronic); F17.210 Nicotine dependence, cigarettes, uncomplicated; Z79.891 Long term (current) use of opiate analgesic; Z90.5 Acquired absence of kidney
CPT/HCPCS: 77336; 77387; 77412; 80053; 85025; 96360; 96361; 96365; 96367; 99214; J1100; J2405; J7030; J7040

== ENCOUNTER 2019-12-07 09:59 | Emergency (ER) | payer OTHER, SELFPAY ==
--- NOTE | 2019-12-07 10:00 | ED_ITS ---
Entered by Caity Vizcaino, acting as scribe for Soraya Valdez MD HPI - Fall General: Chief Complaint: Fall Stated Complaint: Fall/Weakness Time Seen by Provider: 12/07/19 10:00 History of Present Illness: HPI Narrative: 64 yo male presents with fall. Pt states that he has weakness in his legs. Pt states that he has no control of his legs. Pt states that he has severe abd pain. Pt states that he has had this for a few weeks. Pt states that he starts chemo next week. MD complaint: fall Onset (ago): day(s) Fall from: standing Place fall occurred: home Loss of consciousness: None Severity: moderate Associated symptoms-after fall: Reports abdominal pain and weakness; Denies chest pain, headache(s) or neck pain Review of Systems Const: Denies: fever, chills, body aches or change in appetite Eyes: Denies: blurry vision or eye discomfort ENMT: Denies: throat pain or dental pain Card: Denies: chest pain Resp: Denies: shortness of breath GI: Reports: abdominal pain : Denies: painful urination Musc: Denies: neck pain or back pain Skin/Breast: Denies: rash Neuro: Denies: headache Psych: Denies: depression Shadi/Lymph: Denies: easy bruising All/Imm: Denies: hives PFSH ED PFSH: Medical History (Updated 12/07/19 @ 15:26 by Soraya Valdez MD) COPD (chronic obstructive pulmonary disease) Depression Dyslipidemia Metastatic transitional cell carcinoma to bone Myocardial infarction PAD (peripheral artery disease) Transitional cell carcinoma of right kidney Surgical History History of circumcision History of colonoscopy (2007) History of coronary artery stent placement 5x History of hernia repair Right, Left, Groin History of mandibular surgery multiple times over 2 years History of surgical removal of left nipple (06/28/19) Excision of left nipple areolar complex Port-A-Cath in place Social History Smoking and tobacco status: former smoker Alcohol intake: never Lives independently: Yes Household members: spouse Marital status: Current occupational status: retired History of recent travel: No Physical Exam Const: COMMON NORMALS: oriented x3 and alert ORIENTATION/CONSCIOUSNESS: Yes oriented to person, Yes oriented to place and Yes oriented to time HENMT: COMMON NORMALS: normocephalic and head/scalp atraumatic HEAD & SCALP: normocephalic and atraumatic Eye: COMMON NORMALS: PERRL and EOMs intact bilaterally PUPIL: Yes PERRL Neck/C-Spine: COMMON NORMALS: full ROM and supple Chest: COMMONS NORMALS: inspection of chest normal and palpation of chest normal Resp: COMMON NORMALS: normal respiratory effort, no retractions, no use of accessory muscles and clear to auscultation bilaterally AUSCULTATION: clear to auscultation bilaterally Cardio: COMMON NORMALS: regular rate, regular rhythm and no murmurs RATE: regular rate RHYTHM: regular rhythm GI: COMMON NORMALS: normal to inspection, nondistended, normoactive bowel sounds, soft to palpation, non-tender and no masses PALPATION: Yes soft and Yes tender Extremity: COMMON NORMALS: normal to inspection and full ROM Neuro: COMMON NORMALS: oriented x3, moves all extremities and no focal motor deficits SENSORIUM/ORIENTATION: Yes alert, Yes oriented to person, Yes oriented to place and Yes oriented to time Psych: COMMON NORMALS: mental status grossly normal, thought process normal and cooperative THOUGHT PROCESS: normal thought process Skin: COMMON NORMALS: no rashes or lesions noted and no wounds GENERAL SKIN EXAM: no rashes or lesions noted and pallor Course Vital Signs: Vital signs: Vital Signs Temperature 98.2 F 12/07/19 10:01 Pulse Rate 96 12/07/19 16:00 Respiratory Rate 16 12/07/19 16:00 Blood Pressure 101/60 12/07/19 16:00 Pulse Oximetry 97 12/07/19 16:00 MDM - Fall MDM Narrative: Medical decision making narrative: Patient presents here with weakness likely from his cancer. Patient does have increased drink of his lower extremities. MRI shows no signs of cord compression. MRI and CT does show progression worsening of his cancer. Patient has an appointment with his oncologist on Tuesday. He feels improved here and is ambulating. He does have an elevated white count but is no signs of source. Patient is requesting discharge I feel he is stable for discharge at this point. Prognosis seems grim reviewing his images and his metastases. Lab Data: Labs: Lab Results 12/07/19 12/07/1920 Range/Units 10:26 10:26 10:26 WBC 33.3 H* (4.0-10.0) 10^3/ uL RBC 3.79 L (4.1-5.3) 10^6/u L Hgb 11.3 L (11.7-16.6) g/dL Hct 33.3 L (42.0-52.0) % MCV 87.9 (80-94) fL MCH 29.8 (28.0-34.0) pg MCHC 33.9 (30.0-36.0) g/dL RDW 16.1 H (12.1-15.1) % Plt Count 195 (130-400) 10^3/c mm MPV 11.0 H (7.4-10.4) fL Neut % (Auto) 88.3 % Lymph % (Auto) 1.3 % Coryell % (Auto) 6.3 % Eos % (Auto) 0.0 % Baso % (Auto) 0.3 % Neut # (Auto) 29.4 H (1.8-7.7) 10^3/u L Lymph # (Auto) 0.4 L (0.8-4.8) 10^3/u L Coryell # (Auto) 2.1 H (0.2-0.9) 10^3/u L Eos # (Auto) 0.0 (0.0-0.8) 10^3/u L Baso # (Auto) 0.1 (0.0-0.1) 10^3/u L Nucleated RBC % (a uto) 0 % Nucleated RBCs # 0.0 /100WBC Sodium 136 (136-145) mmol/L Potassium 4.9 (3.5-5.1) mmol/L Chloride 100 (98-107) mmol/L Carbon Dioxide 25 (22-29) mmol/L Anion Gap 15.9 (5-19) BUN 43 H (8-23) mg/dL Creatinine 0.8 (0.7-1.2) mg/dL GFR Calculation 97.0 (90-130) mL/min Glucose 134 H (65-115) mg/dL Lactate 2.6 H (0.5-2.2) mmol/L Calcium 8.8 (8.5-10.5) mg/dL Total Bilirubin 2.2 H (0.15-1.2) mg/dL AST 60 H (0-40) U/L ALT 55 H (0-41) U/L Alkaline Phosphata se 310 H (40-130) IU/L Total Protein 6.1 L (6.6-8.7) g/dL Albumin 2.3 L (3.5-5.2) g/dL Globulin 3.8 (1.3-4.6) g/dL Urine Color (Yellow) Urine Appearance (CLEAR) Urine pH (5-7) Ur Specific Gravit y (1.005-1.030) Urine Protein (Negative) Urine Glucose (UA) (Normal) Urine Ketones (Negative) Urine Blood (Negative) Urine Nitrate (Negative) Urine Bilirubin (NEGATIVE) Urine Urobilinogen (Negative) mg/dL Ur Leukocyte Marilou ase (Negative) Urine RBC Urine WBC Ur Squamous Epith Cells Urine Bacteria 12/07/19 Range/Units 13:16 WBC (4.0-10.0) 10^3/ uL RBC (4.1-5.3) 10^6/u L Hgb (11.7-16.6) g/dL Hct (42.0-52.0) % MCV (80-94) fL MCH (28.0-34.0) pg MCHC (30.0-36.0) g/dL RDW (12.1-15.1) % Plt Count (130-400) 10^3/c mm MPV (7.4-10.4) fL Neut % (Auto) % Lymph % (Auto) % Coryell % (Auto) % Eos % (Auto) % Baso % (Auto) % Neut # (Auto) (1.8-7.7) 10^3/u L Lymph # (Auto) (0.8-4.8) 10^3/u L Coryell # (Auto) (0.2-0.9) 10^3/u L Eos # (Auto) (0.0-0.8) 10^3/u L Baso # (Auto) (0.0-0.1) 10^3/u L Nucleated RBC % (a uto) % Nucleated RBCs # /100WBC Sodium (136-145) mmol/L Potassium (3.5-5.1) mmol/L Chloride (98-107) mmol/L Carbon Dioxide (22-29) mmol/L Anion Gap (5-19) BUN (8-23) mg/dL Creatinine (0.7-1.2) mg/dL GFR Calculation (90-130) mL/min Glucose (65-115) mg/dL Lactate (0.5-2.2) mmol/L Calcium (8.5-10.5) mg/dL Total Bilirubin (0.15-1.2) mg/dL AST (0-40) U/L ALT (0-41) U/L Alkaline Phosphata se (40-130) IU/L Total Protein (6.6-8.7) g/dL Albumin (3.5-5.2) g/dL Globulin (1.3-4.6) g/dL Urine Color Dark yellow (Yellow) Urine Appearance Clear (CLEAR) Urine pH 5 (5-7) Ur Specific Gravit y 1.015 (1.005-1.030) Urine Protein Neg (Negative) Urine Glucose (UA) Norm (Normal) Urine Ketones Negative (Negative) Urine Blood Neg (Negative) Urine Nitrate Negative (Negative) Urine Bilirubin 1+ H (NEGATIVE) Urine Urobilinogen 8 H (Negative) mg/dL Ur Leukocyte Marilou ase Negative (Negative) Urine RBC TNP Urine WBC TNP Ur Squamous Epith Cells TNP Urine Bacteria TNP Discharge Plan Discharge Patient Disposition: Home, Self-Care Clinical Impression: Metastatic transitional cell carcinoma to bone, Generalized weakness Condition: Stable Prescriptions: No Action hydrocodone-acetaminophen [[place]] 10-325 mg tablet 1 tab PO Q6H PRN (Reason: Pain) RF: 0 oxycodone-acetaminophen 5-325 mg tablet 1 tab PO Q8H PRN (Reason: Pain) RF: 0 aspirin [Adult Low Dose Aspirin] 81 mg tablet,delayed release (DR/EC) 81 mg PO QDAY RF: 0 atorvastatin 80 mg tablet 80 mg PO QDAY RF: 0 nitroglycerin [Nitrostat] 0.4 mg tablet, sublingual 0.4 mg SUBLINGUAL Q5M PRN (Reason: Chest Pain) RF: 0 metoprolol tartrate 100 mg tablet 50 mg PO QDAY RF: 0 Discharge Orders: Discharge Order (Routine); Ordered 12/07/19 Ordered By: Soraya Valdez Referrals: Chilo Hughes, DO [Primary Care Provider] - 4-7 days Discharge Diet: Advance as tolerated Discharge Activity: Resume usual activity Patient Instructions: Weakness (ED) Discharge Date/Time: 12/07/19 16:01 Coding Level of Care Code ED Senior Research Engineer for Chg Fwd Exam Comprehensive The documentation recorded by the Carrillo zuniga Kialy, accurately reflects the service I personally performed and the decisions made by Courtney kaur Korby, MD Dec 07, 2019 09:59
[2019-12-07 10:01] VITALS: BP 103/66; PULSE 123; RESP 16; TEMP 36.8; O2SAT 97
[2019-12-07 10:07] VITALS: BMI 15.3
--- NOTE | 2019-12-07 10:07 | XR_ITS ---
WS: [id number] XR chest 1V portable [id number] REASON FOR EXAM: weakness FINDINGS: A Mediport is noted on the left side the needle is seen in the Mediport. The tip of the cat heter of the Mediport is in the inferior vena cava. The lung mendez are well aerated. The seventh rib shows a fracture which is not healed. The seen on the right side. The heart is normal there is arteriosclerotic changes seen in the arch the aorta. On today's exam the nipple was not seen as described on June 28, 2019. The lungs are hyper aerated with low-grade chronic obstructive pulmonary disease. XR/XR chest 1V portable [id number] IMPRESSION: Mediport is seen extending from the left side the catheter tip is in the inferi or vena cava. There is a fracture of the seventh rib posteriorly. Chronic obstructive pulmonary disease.
--- NOTE | 2019-12-07 10:07 | MR_ITS ---
WS: [id number] MRI LUMBAR SPINE WITH CONTRAST TECHNIQUE: Postgadolinium imaging only. CLINICAL INFORMATION: possible cord compression COMPARISON: November 13, 2019 FINDINGS: Limited examination with post gadolinium imaging only. Again seen are multiple bony metastatic lesion s lower thoracic, lumbar spine, and sacrum. Additional enhancing lesions in the posterior elements. P rominent lesion at the spinous process at L3 is unchanged. Additional prominent lesion L4 vertebral b jerry. Additional enhancing expansile lesion involving the S3 vertebral body. Numerous other smaller metastatic lesions throughout the bony structures. Distal thoracic cord signal appears normal on the breakfast host imaging. No high-grade central canal stenosis in the lumbar spine. Mild disc bulging L4-L5 and L5-S1. Diffuse partially visualized hepatic metastasis and retroperitoneal/periaortic lymphadenopathy. Notified Soraya Valdez MD at 12/07/2019 1:13 PM. MR/MR lumbar spine w con [id number] IMPRESSION: 1. Limited examination with only post gadolinium imaging. 2. No new pathologic compression fractures. No high-grade central canal stenos is. 3. Numerous stable metastatic lesions most prominent involving the L3 spinous process, L4 vertebral body, and S3 vertebral body. 4. Innumerable metastatic lesions involving the partially visualized liver wit h periaortic and retroperitoneal lymphadenopathy.
--- NOTE | 2019-12-07 10:07 | MR_ITS ---
WS: [id number] MRI THORACIC SPINE WITH CONTRAST TECHNIQUE: Limited examination with post gadolinium imaging only. CLINICAL INFORMATION: possible cord compression COMPARISON: November 13, 2019 FINDINGS: Very limited examination with only postgadolinium imaging. Loss of signal in the upper thoracic spine . Again seen are numerous bony metastatic lesions throughout the thoracic spine with enhancement more p rominent at T4 and T7. Additional prominent lesions at T9, T11, L1, and L2 appear relatively stable. Involvement of the posterior elements. Pathologic compression at T7 with anterior wedging and mild to moderate central canal stenosis appears unchanged. Enhancing epidural disease at the T4 and T7 level s contribute to mild to moderate central canal stenosis. No high-grade narrowing. Mild thoracic kyphosis. Mild thoracic curve. Mediastinal and subcarinal lymphadenopathy. MR/MR thoracic spine w con [id number] IMPRESSION: 1. Very limited examination with post gadolinium imaging only and patient nam on. 2. Numerous bony metastatic lesions throughout the thoracic spine are similar in appearance. 3. Pathologic compression at T7 with mild central canal stenosis and anterior wedging appears unchanged. 4. Small amount of enhancing epidural disease at T7 with mild to moderate cent ral canal stenosis. Additional small amount of epidural disease at T4 with mild central canal stenosis. No high-grade central canal stenosis.
[2019-12-07 10:28] VITALS: RESP 15; O2SAT 96
[2019-12-07 10:36] LABS: Basophils # 0.1 10^3/uL (0.0-0.1); Basophils % 0.3 %; Hematocrit 33.3 % (42.0-52.0); Hemoglobin 11.3 g/dL (11.7-16.6); Lymphocytes # 0.4 10^3/uL (0.8-4.8); Lymphocytes % 1.3 %; Mean Corpuscular HGB Conc 33.9 g/dL (30.0-36.0); Mean Corpuscular Hemoglobin 29.8 pg (28.0-34.0); Mean Corpuscular Volume 87.9 fL (80-94); Monocytes # 2.1 10^3/uL (0.2-0.9); Monocytes % 6.3 %; Neutrophils # 29.4 10^3/uL (1.8-7.7); Neutrophils % 88.3 %; Nucleated Red Blood Cells % 0 %; Platelet Count 195 10^3/cmm (130-400); Red Blood Count 3.79 10^6/uL (4.1-5.3); Red Cell Distribution Width 16.1 % (12.1-15.1)
[2019-12-07] MEDS: sodium chloride 0.9% 1,000 ML 999 ML IV ×2 (10:40→13:21)
[2019-12-07 10:49] LABS: White Blood Count 33.3 10^3/uL (4.0-10.0)
[2019-12-07 10:56] LABS: Alanine Aminotransferase 55 U/L (0-41); Albumin Level 2.3 g/dL (3.5-5.2); Alkaline Phosphatase 310 IU/L (40-130); Anion Gap 15.9 (5-19); Aspartate Amino Transferase 60 U/L (0-40); Blood Urea Nitrogen 43 mg/dL (8-23); Calcium 8.8 mg/dL (8.5-10.5); Carbon Dioxide 25 mmol/L (22-29); Chloride 100 mmol/L (98-107); Globulin 3.8 g/dL (1.3-4.6); Glucose 134 mg/dL (65-115); Potassium 4.9 mmol/L (3.5-5.1); Sodium 136 mmol/L (136-145); Total Bilirubin 2.2 mg/dL (0.15-1.2); Total Protein 6.1 g/dL (6.6-8.7)
[2019-12-07 11:18] LABS: Lactate (Lactic Acid level) 2.6 mmol/L (0.5-2.2)
[2019-12-07 13:00] VITALS: RESP 16
--- NOTE | 2019-12-07 13:36 | CT_ITS ---
WS: [id number] CT ABDOMEN PELVIS TECHNIQUE: Contrast-enhanced CT of the abdomen and pelvis with coronal and sagittal reformatted image s. CLINICAL INFORMATION: abd pain COMPARISON: CT June 12, 2019 and PET/CT October 20, 2019 DLP: 480.[address] scans at [facility] use at least one of these dose optimization techniques: automat ed exposure control; mA and/or kV adjustment per patient size (includes targeted exams where dose is matched to clinical indication); or iterative reconstruction. FINDINGS: Diffuse innumerable metastatic disease throughout the liver progressed since the prior examinations. Hepatomegaly. Compression of the intrahepatic portal veins and splenic veins which appear patent. Mas s effect on the main portal vein and splenic vein which are patent. Prior right nephrectomy. Normal left renal parenchymal enhancement. Left adrenal gland is normal. Tin y bilateral pleural effusions. Infrarenal abdominal aortic aneurysm with peripheral mural thrombus ap pears unchanged and measures 3.5 x 3.4 cm AP by transverse. Diffuse body wall anasarca. Small amount of perihepatic ascites. Diffuse mesenteric edema. Small amount of free fluid in the pelvis. Periaorti c lymphadenopathy. No pelvic sidewall or inguinal lymphadenopathy. Diffuse bony metastatic disease throughout the visualized bony structures discussed on the lumbar spi ne MRI. Notified Soraya Valdez MD at 12/07/2019 2:[address]/CT abdomen pelvis w con* [id number] IMPRESSION: 1. Hepatomegaly with diffuse innumerable metastatic disease throughout both he patic lobes. This has significantly progressed since the prior examinations. 2. Small bilateral pleural effusions. 3. Left paraortic lymphadenopathy. 4. Diffuse body wall anasarca with a small amount of perihepatic fluid and pel liseth ascites. 5. Stable infrarenal abdominal aortic aneurysm measuring 3.5 x 3.4 CM. 6. Diffuse bony metastatic disease throughout the visualized bony structures d iscussed in the lumbar spine MRI.
[2019-12-07 13:41] LABS: Urine Appearance Clear (CLEAR); Urine Color Dark Yellow (Yellow)
[2019-12-07 13:42] LABS: Glucose Urine UA Norm (Normal); Ketones Urine Negative (Negative); Protein Urine Neg (Negative); Specific Gravity, Urine 1.015 (1.005-1.030); pH Urine 5 (5-7)
[2019-12-07 13:43] LABS: Blood Urine Neg (Negative); Nitrate Urine Negative (Negative)
[2019-12-07 13:44] LABS: Bilirubin Urine 1+ (NEGATIVE); Leukocyte Esterase Urine Negative (Negative); Urobilinogen Urine 8 mg/dL (Negative)
[2019-12-07 14:00] VITALS: BP 107/77; PULSE 81; RESP 17; O2SAT 97
[2019-12-07] MEDS: iodixanol 320 mg/mL 100mL Btl IV (14:14)
[2019-12-07 15:00] VITALS: BP 101/60; PULSE 93; RESP 16; O2SAT 96
[2019-12-07] MEDS: HYDROcodone-acetaminophen 7.5-325 mg Tablet 1 TAB PO (15:03)
[2019-12-07] MEDS: ondansetron 2 mg/ML SDV 2 mL 4 MG IVP (15:41)
[2019-12-07 16:00] VITALS: BP 101/60; PULSE 96; RESP 16; O2SAT 97
== END 2019-12-07 16:01 | disposition home or self-care (01) ==
PROVIDERS: Emergency Provider Emergency Medicine; Family Provider Emergency Medicine Emergency Medical Services; PCP Emergency Medicine Emergency Medical Services
DX: C64.1 Malignant neoplasm of right kidney, except renal pelvis (principal); C79.51 Secondary malignant neoplasm of bone; R53.1 Weakness; J44.9 Chronic obstructive pulmonary disease, unspecified; E78.5 Hyperlipidemia, unspecified; I25.2 Old myocardial infarction; Z87.891 Personal history of nicotine dependence; Z95.5 Presence of coronary angioplasty implant and graft
CPT/HCPCS: 36415; 71045; 72147; 72149; 74177; 80053; 81001; 83605; 85025; 87040; 96360; 96361; 96374; 96375; 99283; 99284; A9579; J2405; J7030; Q9967

== ENCOUNTER 2019-12-10 05:33 | Outpatient (RCR) | payer OTHER, SELFPAY ==
[2019-12-10] MEDS: sodium chloride 0.9% 250 ML 75 ML IV (09:50)
[2019-12-10] MEDS: ondansetron 2 mg/ML SDV 2 mL 8 MG IV (09:50)
[2019-12-10] MEDS: sodium chloride 0.9% 1,000 ML 188 ML IV (10:22)
[2019-12-10] MEDS: palonosetron 0.25 mg/5 mL SDV IV (12:17)
--- NOTE | 2019-12-11 12:52 | ONC FU_ITS ---
Dr. Cardoza follow up note Patient: Bart Contreras Unit #: [id number]: [id number] Dicatated By: Rosi Cardoza M.D.Date of Visit:Dec 10, 2019 Onc Med Follow-up/Prog Note History of Present Illness: Mr. Bart Contreras, is a 64-year-old gentleman with history of off and on chronic back pain later on developed right flank pain subsequently in June 2019 started having off and on hematuria patient underwent CT scan of abdomen pelvis which showed significant filling defect of the right kidney patient underwent retrograde and ureteroscopy that showed high-grade, invasive urothelial carcinoma patient was referred to Dr. Gillis at [facility] in [place] for robotic surgery and on 08/20/2019 he underwent right nephroureterectomy and final pathology report showed 5 x 6 x 5 x 2 x 0.6 cm invasive urothelial carcinoma, high-grade, with clear surgical margins, lymphovascular invasion was seen. But tumor invades into the renal parenchyma , pT3 No lymph node was evaluated pNx ,Mx As per patient for the last one month or so now he got progressive mid back pain and MRI scan of spine is under consideration. Denies any hematuria denies any jaundice denies any hemoptysis or hematemesis denies any diarrhea or constipation, appetite is good. Denies any lower extremity numbness or focal weakness. Denies any urine or stool incontinence. 50+ year history of smoking still active. Patient did not go for MRI scan but CT PET scan done on 10/20/2019 showed multiple, lytic FDG positive osseous metastatic disease, T7 lesion has high likelihood of impending pathological fracture. Multifocal hepatic metastatic disease. Malignant adenopathy in the left supraclavicular, mediastinal, bilateral retroperitoneal territories Status post radiation to the T-spine, T4, L-spine from 11/08/2019 to 11/21/2019 Came for follow-up, complaining of mild nausea and off and on vomiting no fever or chills, generalized weakness and fatigue, back pain is under control with current pain medication. Also complaining of poor appetite Medications: Amitriptyline HCl 1 Tablet (of 25 mg) Oral at bedtime PRN, Aspirin Adult 1 Tablet (of 81 mg) Oral daily, Atorvastatin Calcium 0.5 Tablet (of 80 mg) Oral daily, Docusate Sodium 1 (100 mg) Capsule Oral daily, HYDROcodone-Acetaminophen 1 Tablet (of 10-325 mg) Oral q 4 to 6 hours PRN, Metoprolol Tartrate 0.5 Tablet (of 50 mg) Oral daily Allergies: Penicillins Review of Systems: Review of Systems is not available for this patient. Vital Signs: Performed on Dec 10, 2019 09:30 Height - 68.00 in Temperature - 97.9 F (LOW) Respiration - 16 /min BP - 76/48 mm(hg) (LOW) Pain - 5 Fatigue - 7 Performance Status: 2 - Ambulatory/capable of all self-care, unable to perform any work activities. Up and about more than 50% of waking hours. (ECOG) Physical Examination: ENMT - No oral exudates, ulcers, masses, thrush or mucositis. Oropharynx clear. Tongue normal, Respiratory - Lungs are clear to auscultation without rhonchi or wheezing, Cardiovascular - Regular rate and rhythm of heart, Abdomen - Non-tender, non-distended, Good bowel sounds. No guarding or rebound tenderness. No pulsatile masses, Extremities - no edema. Lab/Imaging: Test performed on Dec 03, 2019 14:50 Sodium 135 mmol/L Potassium 4.6 mmol/L Chloride 95 mmol/L CO2 26 mmol/L Anion Gap 18.6 BUN 38 mg/dL Creatinine 1.0 mg/dL Cr Clearance (Est) 47.72 mL/min eGFR 75.0 mL/min Glucose 139 mg/dL Calcium 9.3 mg/dL Protein, Total 6.7 g/dL Albumin 2.3 g/dL Globulin 4.4 g/dL Bilirubin, Total 1.3 mg/dL ALT (SGPT) 47 U/L AST (SGOT) 51 U/L Alkaline Phosphatase 300 IU/L WBC 26.1 10 3/uL RBC 3.68 10 6/uL HGB 10.9 g/dL HCT 32.4 % MCV 88.0 fL MCH 29.6 pg MCHC 33.6 g/dL RDW 15.6 % Platelet Count 301 10 3/cmm MPV 10.6 fL Neutrophils 22.0 10 3/uL Lymphocytes 1.2 10 3/uL Monocytes 2.0 10 3/uL Eosinophils 0.0 10 3/uL Basophils 0.1 10 3/uL Neutrophil % 84.3 % Lymphocyte % 4.5 % Monocyte % 7.6 % Eosinophil % 0.1 % Basophils % 0.3 % Test performed on Oct 29, 2019 13:50 Manual Lymphocytes 23.6 % Manual Monocytes 7.6 % Manual Eosinophils 3.5 % Manual Basophils 1.0 % NRBCs 0.0 /100 WBC Impression: iMetastatic disease probably urothelial carcinoma per CT PET scan done on 10/20/2019 nvasive urothelial carcinoma Involving right renal pelvis status post nephroureterectomy done on 08/20/2019 Final pathology report showed invasive tumor 5.6 x 5.2 x 0.6 cm, high-grade, tumor invades into renal parenchyma, pT3 Lymphovascular invasion present No lymph nodes were evaluated pNx 2. Progressive Back pain, etiology unclear metastatic disease versus musculoskeleton in origin Follow-up CT PET scan done on 10/20/2019 showed extensive metastatic disease involving spine more prominent in T7 with it erodes nearly all of the vertebral body with SUV of 9.9 and also involvement of T4, T7, T8, T11, L3, L4, sternum sacrum, left iliac left acetabulum, left pubic. And bilateral retroperitoneal lymph nodes as well as left supraclavicular region and mediastinal, and paratracheal prevascular precarinal, left hilar territories with SUV of 9.8 Plan: Discussed with patient regarding his concerns and issues, patient is about to start his first cycle of chemotherapy with weekly cisplatin/gemcitabine but because of progressive weakness and fatigue and poor oral intake due to persistent nausea and off and on vomiting and patient's inability to walk, we will not consider cisplatin rather carboplatin/gemcitabine so we will obtain approval for carboplatin in the meantime we'll proceed with weekly gemcitabine 850 mg/m??? day 1 and 8 and repeat every 21 days once carboplatin being approved then will add that to gemcitabine on weekly basis. Because of patient's progressive weakness and fatigue due to poor oral intake and overall disease status, role of hospice care was also discussed with patient and his family, at this point patient wants to try palliative chemotherapy and if could not tolerate then he will consider hospice. We will also consider wheelchair for better mobility as because of extensive spine metastases patient is having hard time moving around. Return to clinic in 1 week with CBC CMP and if it looks okay, for day 8 gemcitabine. Signed By: Rosi Cardoza M.D. <<Signature on File>>
== END 2019-12-15 23:59 | disposition home or self-care (01) ==
LOC: ONCMED 05:33
PROVIDERS: Family Provider Emergency Medicine Emergency Medical Services; PCP Emergency Medicine Emergency Medical Services; Visit Provider Internal Medicine Hematology & Oncology
DX: Z51.11 Encounter for antineoplastic chemotherapy (principal); C65.1 Malignant neoplasm of right renal pelvis; C79.51 Secondary malignant neoplasm of bone; C78.7 Secondary malignant neoplasm of liver and intrahepatic bile duct; G89.3 Neoplasm related pain (acute) (chronic); F17.210 Nicotine dependence, cigarettes, uncomplicated; Z79.82 Long term (current) use of aspirin; Z79.891 Long term (current) use of opiate analgesic; Z79.899 Other long term (current) drug therapy; Z92.3 Personal history of irradiation; Z90.5 Acquired absence of kidney
CPT/HCPCS: 96361; 96367; 96375; 96413; 99214; A9270; J1100; J1200; J1453; J2405; J2469; J7030; J7050; J9201

== ENCOUNTER 2019-12-11 04:22 | Inpatient (IN) | payer OTHER, SELFPAY ==
[2019-12-11] VITALS (41 sets, daily range): BP systolic 61–164; BP diastolic 20–122; PULSE 76–117; RESP 12–28; TEMP 35.2–36.9; O2SAT 89–100; BMI 15.2
--- NOTE | 2019-12-11 04:24 | ED_ITS ---
Entered by Casie Carpenter, acting as scribe for HPI - Weakness General: Chief complaint: General Medical Stated complaint: WEAKNESS Time Seen by Provider: 12/11/19 04:24 Source: patient and EMS Mode of arrival: EMS Limitations: no limitations History of Present Illness: HPI Narrative: 64 yo m came to the er by [facility] E[facility] For weakness and pain all over. Onset was this morning. Pt is a cancer pt, and was seen here yesterday at [facility] per ems. MD Complaint: generalized weakness Review of Systems General: Reports: other (negative unless marked) Neuro: Reports: weakness in extremities PFS ED PFSH: Medical History COPD (chronic obstructive pulmonary disease) Depression Dyslipidemia Metastatic transitional cell carcinoma to bone Myocardial infarction PAD (peripheral artery disease) Transitional cell carcinoma of right kidney Surgical History History of circumcision History of colonoscopy (2007) History of coronary artery stent placement 5x History of hernia repair Right, Left, Groin History of mandibular surgery multiple times over 2 years History of surgical removal of left nipple (06/28/19) Excision of left nipple areolar complex Port-A-Cath in place Family History Son Anesthesia complication Father CAD (coronary artery disease) Cancer Bonce Cancer Mother , Age 96 Dementia Denies family history of Bleeding disorder Social History Smoking and tobacco status: current every day smoker cigarettes Packs smoked per day: 0.5 Alcohol intake: never Lives independently: Yes Household members: spouse Marital status: Current occupational status: retired History of recent travel: No Physical Exam Const: COMMON NORMALS: oriented x3 EXAM LIMITATIONS: no altered mental status GENERAL APPEARANCE: cooperative, in distress, disheveled and lethargic NUTRITIONAL APPEARANCE: cachectic ORIENTATION/CONSCIOUSNESS: Yes awake and Yes lethargic HENMT: COMMON NORMALS: normocephalic, head/scalp atraumatic, hearing grossly normal bilaterally, external ears normal, EAC's normal, external nose normal and moist oral mucous membranes HEAD & SCALP: normal to inspection, normocephalic and atraumatic FACE & SINUS: normal facial exam and face symmetric NOSE: external nose normal and nares normal EXTERNAL EAR: Yes external ears normal EXTERNAL AUDITORY CANAL: EAC's normal MOUTH: oral and palatal mucosa normal and tongue normal Eye: COMMON NORMALS: PERRL, EOMs intact bilaterally, conjunctivae normal and no scleral icterus GENERAL EYE: normal appearance of both eyes and normal light reflex CONJUNCTIVA: Yes conjunctivae normal SCLERA: sclerae normal CORNEA: Yes corneas normal PUPIL: Yes PERRL DIRECT OPHTHALMOSCOPY: Yes normal light reflex Neck/C-Spine: COMMON NORMALS: full ROM, no lymphadenopathy, supple, no meningeal signs and no JVD GENERAL: Yes normal visual inspection and Yes trachea midline CERVICAL SPINE: Yes cervical ROM normal Chest: COMMONS NORMALS: inspection of chest normal and palpation of chest normal Resp: COMMON NORMALS: normal respiratory effort, no retractions, no use of accessory muscles and clear to auscultation bilaterally EFFORT & INSPECTION: Yes able to speak in complete sentences AUSCULTATION: clear to auscultation bilaterally, rhonchi and wheezes Cardio: COMMON NORMALS: no JVD, regular rhythm, S1 normal heart sound, S2 normal heart sound, no gallops, no clicks, no murmurs and no rub JUGULAR VENOUS DISTENTION: no JVD RATE: bradycardic RHYTHM: regular rhythm HEART SOUNDS: S1 normal and S2 normal GI: COMMON NORMALS: soft to palpation, no hepatosplenomegaly and no masses INSPECTION: Yes normal to inspection PALPATION: Yes soft and Yes no hepatosplenomegaly : COMMON NORMALS: Yes no CVA tenderness BLADDER/KIDNEY EXAM: Yes no CVA tenderness Back/Pelvis: COMMON NORMALS: no CVA tenderness, thoracic and lumbar spine normal to inspection, no thoracic nor lumbar tenderness and thoraco-lumbar ROM normal Extremity: COMMON NORMALS: normal to inspection, full ROM, normal capillary refill, no joint enlargement, no clubbing, cyanosis or edema and no calf tenderness Neuro: COMMON NORMALS: oriented x3, CN's II-XII intact bilaterally, moves all extremities, no focal motor deficits and no sensory deficits noted SENSORIUM/ORIENTATION: Yes lethargic MENINGEAL SIGNS: Yes no meningeal signs Psych: COMMON NORMALS: mental status grossly normal, thought process normal, cooperative, affect normal, speech normal and activity/motor behavior normal SPEECH: Yes normal speech THOUGHT PROCESS: normal thought process Skin: COMMON NORMALS: no rashes or lesions noted, skin turgor normal, no jaundice, no petechiae and no mottling GENERAL SKIN EXAM: no rashes or lesions noted and turgor normal Course Vital Signs: Vital signs: Vital Signs Temperature 95.4 F L 12/11/19 04:23 Pulse Rate 90 12/11/19 05:57 Respiratory Rate 26 H 12/11/19 05:57 Blood Pressure 152/59 12/11/19 05:57 Pulse Oximetry 100 12/11/19 05:57 MDM - Weakness MDM Narrative: Medical decision making narrative: Bart is a 64-year-old male who came in in severe distress. Blood pressure was low and his initial telemetry monitoring and EKG look like hyperkalemia. 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 Case is endorsed to Dr. Nga Dong and Dr. Lambert. They will consult and admit respectively. Dr. Burger has place a dialysis catheter the patient will be going for emergent dialysis. Lab Data: Attestation: I reviewed the patient's lab results. Labs: Lab Results 12/11/19 12/11/19 12/11/19 Range/Units 04:58 04:58 04:58 WBC 24.0 H (4.0-10.0) 10^3/ uL RBC 3.52 L (4.1-5.3) 10^6/u L Hgb 10.1 L (11.7-16.6) g/dL Hct 33.0 L (42.0-52.0) % MCV 93.8 (80-94) fL MCH 28.7 (28.0-34.0) pg MCHC 30.6 (30.0-36.0) g/dL RDW 18.3 H (12.1-15.1) % Plt Count 77 L (130-400) 10^3/c mm MPV 12.6 H (7.4-10.4) fL Neut % (Auto) 91.3 % Lymph % (Auto) 1.5 % [place] % (Auto) 1.8 % Eos % (Auto) 0.0 % Baso % (Auto) 0.3 % Neut # (Auto) 21.9 H (1.8-7.7) 10^3/u L Lymph # (Auto) 0.4 L (0.8-4.8) 10^3/u L [place] # (Auto) 0.4 (0.2-0.9) 10^3/u L Eos # (Auto) 0.0 (0.0-0.8) 10^3/u L Baso # (Auto) 0.1 (0.0-0.1) 10^3/u L Nucleated RBC % (a uto) 0.1 % Nucleated RBCs # 0.0 /100WBC PT (10.5-13.3) SECO NDS INR (0.8-1.2) Specimen Type Sample Site ABG pCO2 (35-45) mmHg ABG pO2 (80.0-100.0) mmH g ABG HCO3 (22-26) mmol/L ABG Base Excess (-2.0-2.0) mmol/ L [place] Test Hematocrit (42-52) % O2 Delivery Device Heavy Equipment Supervisor ID Sodium 132 L (136-145) mmol/L Potassium 8.6 H* (3.5-5.1) mmol/L Chloride 96 L (98-107) mmol/L Carbon Dioxide 7 L* (22-29) mmol/L Anion Gap 37.6 H (5-19) BUN 84 H* D (8-23) mg/dL Creatinine 1.8 H (0.7-1.2) mg/dL GFR Calculation 38.1 L (90-130) mL/min Glucose 96 (65-115) mg/dL Calculated Osmolal ity (285-295) mOsm/k g Lactic Acid 17.9 H* (0.5-2.2) mmol/L Calcium 7.6 L (8.5-10.5) mg/dL Magnesium 3.6 H (1.7-2.3) mg/dL Total Bilirubin 3.4 H (0.15-1.2) mg/dL AST 508 H (0-40) U/L ALT 196 H (0-41) U/L Alkaline Phosphata se 274 H (40-130) IU/L Ammonia Creatine Kinase (39-308) U/L Troponin T Baselin e (0-15) ng/mL Troponin T 120 Min [place] (0-15) ng/mL Delta Troponin T (0-10) ABS# Total Protein 4.7 L (6.6-8.7) g/dL Albumin 1.9 L (3.5-5.2) g/dL Globulin 2.8 (1.3-4.6) g/dL Lipase 51 (13-60) U/L Urine Color (Yellow) Urine Appearance (CLEAR) Urine pH (5-7) Ur Specific Gravit y (1.005-1.030) Urine Protein (Negative) Urine Glucose (UA) (Normal) Urine Ketones (Negative) Urine Blood (Negative) Urine Nitrate (Negative) Urine Bilirubin (NEGATIVE) Urine Urobilinogen (Negative) mg/dL Ur Leukocyte Marilou ase (Negative) Urine RBC (0-2) /hpf Urine WBC (0-5) /hpf Ur Squamous Epith Cells (0-5) Amorphous Sediment Urine Bacteria (NONE) Ethyl Alcohol < 10 (0-10) mg/dL Serum Ketones (Negative) 12/11/19 12/11/19 12/11/19 Range/Units 04:58 04:58 04:58 WBC (4.0-10.0) 10^3/ uL RBC (4.1-5.3) 10^6/u L Hgb (11.7-16.6) g/dL Hct (42.0-52.0) % MCV (80-94) fL MCH (28.0-34.0) pg MCHC (30.0-36.0) g/dL RDW (12.1-15.1) % Plt Count (130-400) 10^3/c mm MPV (7.4-10.4) fL Neut % (Auto) % Lymph % (Auto) % Rapides % (Auto) % Eos % (Auto) % Baso % (Auto) % Neut # (Auto) (1.8-7.7) 10^3/u L Lymph # (Auto) (0.8-4.8) 10^3/u L [place] # (Auto) (0.2-0.9) 10^3/u L Eos # (Auto) (0.0-0.8) 10^3/u L Baso # (Auto) (0.0-0.1) 10^3/u L Nucleated RBC % (a uto) % Nucleated RBCs # /100WBC PT 30.40 H (10.5-13.3) SECO NDS INR 2.86 H (0.8-1.2) Specimen Type Sample Site ABG pCO2 (35-45) mmHg ABG pO2 (80.0-100.0) mmH g ABG HCO3 (22-26) mmol/L ABG Base Excess (-2.0-2.0) mmol/ L [place] Test Hematocrit (42-52) % O2 Delivery Device Heavy Equipment Supervisor ID Sodium (136-145) mmol/L Potassium (3.5-5.1) mmol/L Chloride (98-107) mmol/L Carbon Dioxide (22-29) mmol/L Anion Gap (5-19) BUN (8-23) mg/dL Creatinine (0.7-1.2) mg/dL GFR Calculation (90-130) mL/min Glucose (65-115) mg/dL Calculated Osmolal ity (285-295) mOsm/k g Lactic Acid (0.5-2.2) mmol/L Calcium (8.5-10.5) mg/dL Magnesium (1.7-2.3) mg/dL Total Bilirubin (0.15-1.2) mg/dL AST (0-40) U/L ALT (0-41) U/L Alkaline Phosphata se (40-130) IU/L Ammonia Cancelled Creatine Kinase (39-308) U/L Troponin T Baselin e (0-15) ng/mL Troponin T 120 Min [place] (0-15) ng/mL Delta Troponin T (0-10) ABS# Total Protein (6.6-8.7) g/dL Albumin (3.5-5.2) g/dL Globulin (1.3-4.6) g/dL Lipase (13-60) U/L Urine Color (Yellow) Urine Appearance (CLEAR) Urine pH (5-7) Ur Specific Gravit y (1.005-1.030) Urine Protein (Negative) Urine Glucose (UA) (Normal) Urine Ketones (Negative) Urine Blood (Negative) Urine Nitrate (Negative) Urine Bilirubin (NEGATIVE) Urine Urobilinogen (Negative) mg/dL Ur Leukocyte Marilou ase (Negative) Urine RBC (0-2) /hpf Urine WBC (0-5) /hpf Ur Squamous Epith Cells (0-5) Amorphous Sediment Urine Bacteria (NONE) Ethyl Alcohol (0-10) mg/dL Serum Ketones Negative (Negative) 12/11/19 12/11/19 12/11/19 Range/Units 04:58 04:58 04:58 WBC (4.0-10.0) 10^3/ uL RBC (4.1-5.3) 10^6/u L Hgb (11.7-16.6) g/dL Hct (42.0-52.0) % MCV (80-94) fL MCH (28.0-34.0) pg MCHC (30.0-36.0) g/dL RDW (12.1-15.1) % Plt Count (130-400) 10^3/c mm MPV (7.4-10.4) fL Neut % (Auto) % Lymph % (Auto) % [place] % (Auto) % Eos % (Auto) % Baso % (Auto) % Neut # (Auto) (1.8-7.7) 10^3/u L Lymph # (Auto) (0.8-4.8) 10^3/u L [place] # (Auto) (0.2-0.9) 10^3/u L Eos # (Auto) (0.0-0.8) 10^3/u L Baso # (Auto) (0.0-0.1) 10^3/u L Nucleated RBC % (a uto) % Nucleated RBCs # /100WBC PT (10.5-13.3) SECO NDS INR (0.8-1.2) Specimen Type Sample Site ABG pCO2 (35-45) mmHg ABG pO2 (80.0-100.0) mmH g ABG HCO3 (22-26) mmol/L ABG Base Excess (-2.0-2.0) mmol/ L [place] Test Hematocrit (42-52) % O2 Delivery Device Heavy Equipment Supervisor ID Sodium (136-145) mmol/L Potassium (3.5-5.1) mmol/L Chloride (98-107) mmol/L Carbon Dioxide (22-29) mmol/L Anion Gap (5-19) BUN (8-23) mg/dL Creatinine (0.7-1.2) mg/dL GFR Calculation (90-130) mL/min Glucose (65-115) mg/dL Calculated Osmolal ity (285-295) mOsm/k g Lactic Acid (0.5-2.2) mmol/L Calcium (8.5-10.5) mg/dL Magnesium (1.7-2.3) mg/dL Total Bilirubin (0.15-1.2) mg/dL AST (0-40) U/L ALT (0-41) U/L Alkaline Phosphata se (40-130) IU/L Ammonia 95 H Creatine Kinase 176 (39-308) U/L Troponin T Baselin e 13 (0-15) ng/mL Troponin T 120 Min [place] (0-15) ng/mL Delta Troponin T (0-10) ABS# Total Protein (6.6-8.7) g/dL Albumin (3.5-5.2) g/dL Globulin (1.3-4.6) g/dL Lipase (13-60) U/L Urine Color (Yellow) Urine Appearance (CLEAR) Urine pH (5-7) Ur Specific Gravit y (1.005-1.030) Urine Protein (Negative) Urine Glucose (UA) (Normal) Urine Ketones (Negative) Urine Blood (Negative) Urine Nitrate (Negative) Urine Bilirubin (NEGATIVE) Urine Urobilinogen (Negative) mg/dL Ur Leukocyte Marilou ase (Negative) Urine RBC (0-2) /hpf Urine WBC (0-5) /hpf Ur Squamous Epith Cells (0-5) Amorphous Sediment Urine Bacteria (NONE) Ethyl Alcohol (0-10) mg/dL Serum Ketones (Negative) 12/11/19 12/11/19 12/11/19 Range/Units 05:24 05:32 06:00 WBC (4.0-10.0) 10^3/ uL RBC (4.1-5.3) 10^6/u L Hgb (11.7-16.6) g/dL Hct (42.0-52.0) % MCV (80-94) fL MCH (28.0-34.0) pg MCHC (30.0-36.0) g/dL RDW (12.1-15.1) % Plt Count (130-400) 10^3/c mm MPV (7.4-10.4) fL Neut % (Auto) % Lymph % (Auto) % [place] % (Auto) % Eos % (Auto) % Baso % (Auto) % Neut # (Auto) (1.8-7.7) 10^3/u L Lymph # (Auto) (0.8-4.8) 10^3/u L [place] # (Auto) (0.2-0.9) 10^3/u L Eos # (Auto) (0.0-0.8) 10^3/u L Baso # (Auto) (0.0-0.1) 10^3/u L Nucleated RBC % (a uto) % Nucleated RBCs # /100WBC PT (10.5-13.3) SECO NDS INR (0.8-1.2) Specimen Type Arterial Sample Site Femoral, right ABG pCO2 27.0 L (35-45) mmHg ABG pO2 72.1 L (80.0-100.0) mmH g ABG HCO3 7.2 L (22-26) mmol/L ABG Base Excess -22.0 L (-2.0-2.0) mmol/ L [place] Test N/a Hematocrit 28.2 L (42-52) % O2 Delivery Device Room air Heavy Equipment Supervisor ID hinja Sodium (136-145) mmol/L Potassium (3.5-5.1) mmol/L Chloride (98-107) mmol/L Carbon Dioxide (22-29) mmol/L Anion Gap (5-19) BUN (8-23) mg/dL Creatinine (0.7-1.2) mg/dL GFR Calculation (90-130) mL/min Glucose (65-115) mg/dL Calculated Osmolal ity (285-295) mOsm/k g Lactic Acid (0.5-2.2) mmol/L Calcium (8.5-10.5) mg/dL Magnesium (1.7-2.3) mg/dL Total Bilirubin (0.15-1.2) mg/dL AST (0-40) U/L ALT (0-41) U/L Alkaline Phosphata se (40-130) IU/L Ammonia Creatine Kinase (39-308) U/L Troponin T Baselin e (0-15) ng/mL Troponin T 120 Min [place] 10.85 (0-15) ng/mL Delta Troponin T -2.15 L (0-10) ABS# Total Protein (6.6-8.7) g/dL Albumin (3.5-5.2) g/dL Globulin (1.3-4.6) g/dL Lipase (13-60) U/L Urine Color Dark yellow (Yellow) Urine Appearance Hazy A (CLEAR) Urine pH 5 (5-7) Ur Specific Gravit y 1.025 (1.005-1.030) Urine Protein Neg (Negative) Urine Glucose (UA) Norm (Normal) Urine Ketones Negative (Negative) Urine Blood 3+ H (Negative) Urine Nitrate Negative (Negative) Urine Bilirubin 1+ H (NEGATIVE) Urine Urobilinogen 4 H (Negative) mg/dL Ur Leukocyte Marilou ase Negative (Negative) Urine RBC 5-10 H (0-2) /hpf Urine WBC None (0-5) /hpf Ur Squamous Epith Cells None (0-5) Amorphous Sediment 1+ Urine Bacteria 1+ H (NONE) Ethyl Alcohol (0-10) mg/dL Serum Ketones (Negative) 12/11/ Range/Units 06:00 WBC (4.0-10.0) 10^3/ uL RBC (4.1-5.3) 10^6/u L Hgb (11.7-16.6) g/dL Hct (42.0-52.0) % MCV (80-94) fL MCH (28.0-34.0) pg MCHC (30.0-36.0) g/dL RDW (12.1-15.1) % Plt Count (130-400) 10^3/c mm MPV (7.4-10.4) fL Neut % (Auto) % Lymph % (Auto) % [place] % (Auto) % Eos % (Auto) % Baso % (Auto) % Neut # (Auto) (1.8-7.7) 10^3/u L Lymph # (Auto) (0.8-4.8) 10^3/u L [place] # (Auto) (0.2-0.9) 10^3/u L Eos # (Auto) (0.0-0.8) 10^3/u L Baso # (Auto) (0.0-0.1) 10^3/u L Nucleated RBC % (a uto) % Nucleated RBCs # /100WBC PT (10.5-13.3) SECO NDS INR (0.8-1.2) Specimen Type Sample Site ABG pCO2 (35-45) mmHg ABG pO2 (80.0-100.0) mmH g ABG HCO3 (22-26) mmol/L ABG Base Excess (-2.0-2.0) mmol/ L [place] Test Hematocrit (42-52) % O2 Delivery Device Heavy Equipment Supervisor ID Sodium 134 L (136-145) mmol/L Potassium 7.2 H* (3.5-5.1) mmol/L Chloride 98 (98-107) mmol/L Carbon Dioxide 9 L (22-29) mmol/L Anion Gap 34.2 H (5-19) BUN 76 H (8-23) mg/dL Creatinine 1.7 H (0.7-1.2) mg/dL GFR Calculation 40.7 L (90-130) mL/min Glucose 235 H (65-115) mg/dL Calculated Osmolal ity 285 (285-295) mOsm/k g Lactic Acid (0.5-2.2) mmol/L Calcium 8.2 L (8.5-10.5) mg/dL Magnesium (1.7-2.3) mg/dL Total Bilirubin (0.15-1.2) mg/dL AST (0-40) U/L ALT (0-41) U/L Alkaline Phosphata se (40-130) IU/L Ammonia Creatine Kinase (39-308) U/L Troponin T Baselin e (0-15) ng/mL Troponin T 120 Min [place] (0-15) ng/mL Delta Troponin T (0-10) ABS# Total Protein (6.6-8.7) g/dL Albumin (3.5-5.2) g/dL Globulin (1.3-4.6) g/dL Lipase (13-60) U/L Urine Color (Yellow) Urine Appearance (CLEAR) Urine pH (5-7) Ur Specific Gravit y (1.005-1.030) Urine Protein (Negative) Urine Glucose (UA) (Normal) Urine Ketones (Negative) Urine Blood (Negative) Urine Nitrate (Negative) Urine Bilirubin (NEGATIVE) Urine Urobilinogen (Negative) mg/dL Ur Leukocyte Marilou ase (Negative) Urine RBC (0-2) /hpf Urine WBC (0-5) /hpf Ur Squamous Epith Cells (0-5) Amorphous Sediment Urine Bacteria (NONE) Ethyl Alcohol (0-10) mg/dL Serum Ketones (Negative) Imaging Data^: CXR: Radiologist's impression: COPD changes, no acute cardiopulmonary findings. EKG Data^: EKG 1: Attestation: I personally reviewed and interpreted this EKG as follows: EKG interpretation date: 12/11/19 EKG interpretation time: 04:47 Interpretation: Possible sinus rhythm with bradycardic ventricular rate of 80 with wide-complex EKG. Findings suspicious for hyperkalemia EKG 2: EKG interpretation date: 12/11/19 EKG interpretation time: 05:03 Interpretation: Sinus rhythm with wide complex QRS, findings consistent with hyperkalemia EKG 3: EKG interpretation date: 12/11/19 EKG interpretation time: 05:18 Interpretation: Normal sinus rhythm at 85 beats a minute, widened QRS, nonspecific ST and T wave changes Discharge Plan Discharge Patient Disposition: Admitted As Inpatient Clinical Impression: Generalized weakness Condition: Stable Referrals: Chilo Hughes, [Primary Care Provider] - Coding Level of Care Code ED Armored Transport Service Manager for Chg Fwd The documentation recorded by the Jayden zuniga Stephanie Lyn, accurately reflects the service I personally performed and the decisions made by Yonatan kaur Eli N Dec 11, 2019 04:22
--- NOTE | 2019-12-11 04:26 | XR_ITS ---
WS: [id number] Portable AP upright chest, 12/11/2019 Clinical Data: cough Comparison: Chest, 12/07/2019. Findings: No nodules, masses or effusions are seen. The heart is normal. The pulmonary vascularity is not increased. No pneumonia or pneumothorax is seen. The diaphragms are flattened. Monitor leads on the chest wall. The infusion catheter remains in the same position.. Old right posterolateral lateral right seventh rib fracture has not changed. XR/XR chest 1V portable [id number] Impression: Hyperinflation
--- NOTE | 2019-12-11 04:28 | ECG_ITS ---
Measurements Intervals [place] Rate: 80 P: 67 FL: 94 QRS: 0 QRSD: -3 T: -87 QT: 219 QTc: 253 SINUS RHYTHM WITH WIDENED QRS COMPLEXES. PROLONGED FL AND QT intervals. Indeterminate axis Prominent T waves Compared to the EKG from 06/27/2019, there is significant change Electronically Signed On 12-11-2019 19:40:02 BINDERY MACHINE TENDER by Di Meraz M.D. [email or web address]
[2019-12-11] MEDS: sodium chloride 0.9% 1,000 ML 999 ML IV (05:00)
[2019-12-11] MEDS: calcium chloride 10% Syr 10 mL 1 GM IVP (05:09)
[2019-12-11 05:11] LABS: Basophils # 0.1 10^3/uL (0.0-0.1); Basophils % 0.3 %; Hemoglobin 10.1 g/dL (11.7-16.6); Lymphocytes # 0.4 10^3/uL (0.8-4.8); Lymphocytes % 1.5 %; Mean Corpuscular HGB Conc 30.6 g/dL (30.0-36.0); Mean Corpuscular Hemoglobin 28.7 pg (28.0-34.0); Mean Corpuscular Volume 93.8 fL (80-94); Mean Platelet Volume 12.6 fL (7.4-10.4); Monocytes # 0.4 10^3/uL (0.2-0.9); Monocytes % 1.8 %; Neutrophils # 21.9 10^3/uL (1.8-7.7); Neutrophils % 91.3 %; Nucleated Red Blood Cells % 0.1 %; Platelet Count 77 10^3/cmm (130-400); Red Blood Count 3.52 10^6/uL (4.1-5.3); Red Cell Distribution Width 18.3 % (12.1-15.1)
[2019-12-11] MEDS: sodium bicarbonate 8.4% 1 mEq/mL 50mL Syr 50 MEQ IVP (05:18)
[2019-12-11 05:23] LABS: Ketone (Acetest) Serum Negative (Negative)
[2019-12-11] MEDS: insulin regular-human 100 units/1 mL 10 UNIT IVP (05:23)
[2019-12-11 05:25] LABS: Arterial Blood Gas Hematocrit 28.2 % (42-52); Blood Gas Sample Site Femoral, right; Blood Gas Sample Type Arterial; HCO3 ABG 7.2 mmol/L (22-26); Oxygen Device ROOM AIR; PO2 ABG 72.1 mmHg (80.0-100.0)
[2019-12-11 05:26] LABS: Alanine Aminotransferase 196 U/L (0-41); Albumin Level 1.9 g/dL (3.5-5.2); Alkaline Phosphatase 274 IU/L (40-130); Anion Gap 37.6 (5-19); Aspartate Amino Transferase 508 U/L (0-40); Calcium 7.6 mg/dL (8.5-10.5); Chloride 96 mmol/L (98-107); Globulin 2.8 g/dL (1.3-4.6); Glomerular Filtration Rate 38.1 mL/min (90-130); Glucose 96 mg/dL (65-115); Lipase 51 U/L (13-60); Magnesium 3.6 mg/dL (1.7-2.3); Sodium 132 mmol/L (136-145); Total Bilirubin 3.4 mg/dL (0.15-1.2); Total Protein 4.7 g/dL (6.6-8.7)
[2019-12-11] MEDS: ondansetron 2 mg/ML SDV 2 mL 4 MG IVP ×2 (05:26→10:11)
[2019-12-11 05:27] LABS: INR 2.86 (0.8-1.2)
[2019-12-11 05:28] LABS: Troponin(5th) Baseline 13 ng/mL (0-15)
[2019-12-11] MEDS: cefepime 2,000 MG in sodium chloride 0.9% (plus) 50 ML 100 MG IV (05:32)
[2019-12-11] MEDS: sodium chloride 0.9% 1,000 ML 100 ML IV ×2 (05:36→18:09)
[2019-12-11 05:37] LABS: Creatine Phosphokinase 176 U/L (39-308)
[2019-12-11 05:44] LABS: Lactic Sepsis W/Reflex 17.9 mmol/L (0.5-2.2)
[2019-12-11 05:45] LABS: Potassium 8.6 mmol/L (3.5-5.1)
[2019-12-11 05:46] LABS: Alcohol Level < 10 mg/dL (0-10); Blood Urea Nitrogen 84 mg/dL (8-23); Carbon Dioxide 7 mmol/L (22-29)
[2019-12-11 05:48] LABS: Slide Review Slide Review Perform
[2019-12-11 05:56] LABS: Ammonia 95 umol/L (16-60)
--- NOTE | 2019-12-11 06:25 | PM.HP ---
Providers/Chief Complaint Admitting Physician: Cherelle Meyer MD Primary Care Provider: Chilo Hughes DO Chief Complaint: WEAKNESS History of Present Illness Bart Contreras SR is a 64 year old male who presented to the emergency room via EMS with complaint of back pain as well as increasing swelling in his feet.. Patient has a known history of transitional cell carcinoma with metastases to bone and has had some issues with back pain. He also had a fall a few days ago. The pain today though was much more intense. He received 8 mg morphine in route from EMS. He also received 4 mg of Zofran. On arrival patient was hypothermic with a temperature of 95.4. Pulse was 81. Blood pressure was low. He was hooked up to residential monitor and had wide-complex rhythm with elevation and T waves. He was started on IV fluids immediately and empirically treated for suspected hyperkalemia. Potassium in fact did come back at 8.5. Surgery has been consulted to place an emergent dialysis catheter. Nephrology has been consulted as well and Dr. Dong has already seen Mr. Contreras. It should be noted that patient did receive chemotherapy for the first time with cisplatin and gemcitabine on December 10. He has had little urine output since then and actually reports minimal output for the past couple of days. Patient does wish for everything to be done including the possibility of dialysis. Review of Systems Const: Reports: body aches, change in appetite and change in weight; Denies: fever or chills ENMT: Reports: dry mouth; Denies: painful swallowing Card: Reports: edema, swelling of feet/ankles and lightheadedness; Denies: chest pain Resp: Reports: shortness of breath GI: Reports: abdominal pain, nausea and heartburn/indigestion; Denies: diarrhea : Reports: difficulty starting urination and decreased urine ouput; Denies: painful urination Musc: Reports: back pain and extremity swelling Skin/Breast: Reports: itching and other (very pale, cool) Neuro: Reports: numbness in extremities and weakness in extremities Psych: Reports: sleeping more Shadi/Lymph: Denies: easy bleeding Medications/Allergies Home Medications Medication Instructions Recorded Confirmed Last Taken Type amitriptyline 25 mg PO DAILY 12/11/19 12/11/19 Unknown History dexamethasone 2 mg PO TID 12/11/19 12/11/19 Unknown History methocarbamol 750 mg PO TID PRN 12/11/19 12/11/19 Unknown History naproxen 500 mg PO BID PRN 12/11/19 12/11/19 Unknown History prochlorperazine maleate 10 mg PO Q4H PRN 12/11/19 12/11/19 Unknown History Allergies Allergy/AdvReac Type Severity Reaction Status Date / Time penicillin G Allergy Unconscious Verified 11/06/19 13:28 [From Bicillin C-R] penicillin G procaine Allergy Unknown Verified 11/06/19 08:26 [From Bicillin C-R] Penicillins Allergy Unknown Verified 11/06/19 08:26 PFSH Acute PFSH: Medical History COPD (chronic obstructive pulmonary disease) Depression Dyslipidemia Metastatic transitional cell carcinoma to bone Myocardial infarction PAD (peripheral artery disease) Transitional cell carcinoma of right kidney Surgical History History of circumcision History of colonoscopy (2007) History of coronary artery stent placement 5x History of hernia repair Right, Left, Groin History of mandibular surgery multiple times over 2 years History of surgical removal of left nipple (06/28/19) Excision of left nipple areolar complex Port-A-Cath in place Family History Son Anesthesia complication Father CAD (coronary artery disease) Cancer Bonce Cancer Mother , Age 96 Dementia Denies family history of Bleeding disorder Social History Smoking and tobacco status: current every day smoker cigarettes Packs smoked per day: 0.5 Alcohol intake: never Lives independently: Yes Household members: spouse Marital status: Current occupational status: retired History of recent travel: No Vitals/I&O/Wt Last Vital Signs Temp 95.4 F L 12/11/19 04:23 Pulse 90 12/11/19 05:57 Resp 26 H 12/11/19 05:57 BP 152/59 12/11/19 05:57 Pulse Ox 100 12/11/19 05:57 12/10/19 12/10/19 12/11/19 14:59 22:59 06:59 Intake Total 50 / 50 Balance 50 / 50 Weight last 48 hrs Weight 45.359 kg Physical Exam Const: GENERAL APPEARANCE: in distress and grossly edematous (lower extremities) NUTRITIONAL APPEARANCE: cachectic HENMT: HEAD & SCALP: other (bitemporal wasting) MOUTH: other (very dry membranes) Eye: COMMON NORMALS: no scleral icterus GENERAL EYE: other (pupils sluggish but equal) Neck/C-Spine: COMMON NORMALS: supple Resp: EFFORT & INSPECTION: Yes tachypneic, Yes respiratory distress and Yes uses accessory muscles Cardio: JUGULAR VENOUS DISTENTION: no JVD RATE: regular rate RHYTHM: abnormal rhythm with ectopic beats (weak pulses) HEART SOUNDS: no murmurs GI: COMMON NORMALS: soft to palpation AUSCULTATION: Yes hypoactive bowel sounds PALPATION: Yes tender Details: LLQ and RLQ Extremity: GENERAL: Yes edema (3-4+ bilaterally) Skin: NARRATIVE SKIN EXAM: dry flaking skin both lower extremities especially, but dry everywhere. No large areas of ecchymosis noted. Poor turgor. Cap refill 3 sec. Feet cool, but no mottling noted. very pale. Urinary Catheter Management^: Pop: Cath Placed During This Visit: yes Urethral Indwelling: Yes Reason for Continuing Indwelling Catheter: Accurate Measurement of Urinary Output in Critically Ill Patients Urinary Catheter Date of Insertion: 12/11/19 Urinary Catheter Time of Insertion: 05:33 Data : 12/11/19 04:58 12/11/19 04:58 Other Labs: Abnormal Labs 12/11/19 12/11/19 12/11/19 04:58 04:58 04:58 WBC 24.0 H RBC 3.52 L Hgb 10.1 L Hct 33.0 L RDW 18.3 H Plt Count 77 L MPV 12.6 H Neut # (Auto) 21.9 H Lymph # (Auto) 0.4 L PT INR ABG pCO2 ABG pO2 ABG HCO3 ABG Base Excess Hematocrit Sodium 132 L Potassium 8.6 H* Chloride 96 L Carbon Dioxide 7 L* Anion Gap 37.6 H BUN 84 H* D Creatinine 1.8 H GFR Calculation 38.1 L Glucose Lactic Acid 17.9 H* Uric Acid Calcium 7.6 L Magnesium 3.6 H Total Bilirubin 3.4 H AST 508 H ALT 196 H Alkaline Phosphatase 274 H Ammonia Delta Troponin T Total Protein 4.7 L Albumin 1.9 L Urine Appearance Urine Blood Urine Bilirubin Urine Urobilinogen Urine RBC Urine Bacteria 12/11/19 12/11/19 12/11/19 04:58 04:58 05:24 WBC RBC Hgb Hct RDW Plt Count MPV Neut # (Auto) Lymph # (Auto) PT 30.40 H INR 2.86 H ABG pCO2 27.0 L ABG pO2 72.1 L ABG HCO3 7.2 L ABG Base Excess -22.0 L Hematocrit 28.2 L Sodium Potassium Chloride Carbon Dioxide Anion Gap BUN Creatinine GFR Calculation Glucose Lactic Acid Uric Acid Calcium Magnesium Total Bilirubin AST ALT Alkaline Phosphatase Ammonia 95 H Delta Troponin T Total Protein Albumin Urine Appearance Urine Blood Urine Bilirubin Urine Urobilinogen Urine RBC Urine Bacteria 12/11/19 12/11/19 12/11/19 05:32 06:00 06:00 WBC RBC Hgb Hct RDW Plt Count MPV Neut # (Auto) Lymph # (Auto) PT INR ABG pCO2 ABG pO2 ABG HCO3 ABG Base Excess Hematocrit Sodium 134 L Potassium 7.2 H* Chloride Carbon Dioxide 9 L Anion Gap 34.2 H BUN 76 H Creatinine 1.7 H GFR Calculation 40.7 L Glucose 235 H Lactic Acid Uric Acid 15.8 H Calcium 8.2 L Magnesium Total Bilirubin AST ALT Alkaline Phosphatase Ammonia Delta Troponin T -2.15 L Total Protein Albumin Urine Appearance Hazy A Urine Blood 3+ H Urine Bilirubin 1+ H Urine Urobilinogen 4 H Urine RBC 5-10 H Urine Bacteria 1+ H Micro: Microbiology 12/11/19 04:58 Blood Culture - Preliminary Blood SPECIMEN COLLECTED 12/11/19 04:58 Blood Culture - Preliminary Blood SPECIMEN COLLECTED A&P Assessment and plan (1) Acute hyperkalemia: Status: Acute Code(s): E87.5 - Hyperkalemia (2) Acute renal failure: Status: Acute Qualifiers: Acute renal failure type: with acute tubular necrosis Qualified Code(s): N17.0 - Acute kidney failure with tubular necrosis Code(s): N17.9 - Acute kidney failure, unspecified (3) 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 Status post cisplatin and gemcitabine today for first time. Status: Acute Code(s): C79.51 - Secondary malignant neoplasm of bone (4) Generalized weakness: Multifactorial Status: Acute Code(s): R53.1 - Weakness (5) COPD (chronic obstructive pulmonary disease): Status: Acute Qualifiers: COPD type: unspecified COPD Qualified Code(s): J44.9 - Chronic obstructive pulmonary disease, unspecified Code(s): J44.9 - Chronic obstructive pulmonary disease, unspecified Additional A&P Information Inpatient admission to the ICU Emergent dialysis catheter placement Emergent dialysis due to hyperkalemia In the interim we will continue on fluids with bicarb, intermittent calcium, intermittent insulin with D50 and other measures as needed to minimize recurrent significant arrhythmias Check uric acid and LDH, clinically have to be worried about spontaneous tumor lysis syndrome with what appears to be rapid onset acute renal failure after chemotherapy today versus an effect from the chemo itself, I have a call into Dr. Cardoza and a message has been left with him. Will need continued hydration and close monitoring of electrolytes Hold any NSAIDs of which patient does have on his home medication list Empiric antibiotics with Levaquin given penicillin allergy Blood cultures were collected in the emergency room Blood pressures thus far responded to IV fluids but will need to be monitored Patient was typed and crossed in the ED due to acute presentation but has not received any transfusion Monitor I's and O's closely Keep Pop catheter in place to achieve above Supportive care otherwise SCDs for DVT prophylaxis, no pharmacological prophylaxis secondary to low platelets which are also new Full code per his wishes although with comorbid conditions including metastatic cancer, will need to continue discussions as aggressive measures are not likely to delay the inevitable too long. Plans were discussed with patient while he was in the emergency room Reviewed plans with Dr. Dong briefly as well Patient is critically ill at this point in time Attestations Medical Necessity Statement*: Anticipated stay greater than 2 midnights hence patient presenting with critical hyperkalemia and acute renal failure after first dose of chemotherapy. At high risk of rapid clinical decline up to and including the possibility of Critical Care Time: The high probability of a clinically significant, sudden or life threatening deterioration of the patient's cardiac and renal system(s) required my full and direct attention, intervention and personal management. The critical care time is as shown. This time is in addition to time spent performing any reported procedures but includes the following: x Data and vital sign review and interpretation x Patient assessment, examination and intervention x Documentation x Medication orders and management Critical Care Time (min): 65 Coding Level of Care Code Acute Registered Associate for Cash Fwd Diagnoses Acute hyperkalemia E87.5 Acute renal failure N17.0 Acute renal failure type: with acute tubular necrosis Metastatic transitional cell carcinoma to bone C79.51 Generalized weakness R53.1 COPD (chronic obstructive pulmonary disease) J44.9 COPD type: unspecified COPD
[2019-12-11 06:28] LABS: Anion Gap 34.2 (5-19); Blood Urea Nitrogen 76 mg/dL (8-23); Calcium 8.2 mg/dL (8.5-10.5); Chloride 98 mmol/L (98-107); Glomerular Filtration Rate 40.7 mL/min (90-130); Glucose 235 mg/dL (65-115); Osmolality Calculated 285 mOsm/kg (285-295); Sodium 134 mmol/L (136-145)
--- NOTE | 2019-12-11 06:28 | ECG_ITS ---
Measurements Intervals [place] Rate: 88 P: 67 HI: 137 QRS: 89 QRSD: 112 T: 65 QT: 393 QTc: 477 SINUS RHYTHM WITH FREQUENT SUPRAVENTRICULAR PREMATURE COMPLEXES, short runs of paroxysmal atrial tachycardia MODERATE INTRAVENTRICULAR CONDUCTION DELAY [110+ ms QRS DURATION] MODERATE ST DEPRESSION [0.05+ mV ST DEPRESSION] Compared to ECG 06/27/2019 13:36:32 Intraventricular conduction delay now present Short HI interval no longer present ST (T wave) deviation still present Electronically Signed On 12-11-2019 19:59:26 CORN CUTTER OPERATOR by Di Meraz M.D. [email or web address]
[2019-12-11 06:31] LABS: Troponin 5 2HR 10.85 ng/mL (0-15)
--- NOTE | 2019-12-11 06:38 | PM.OP ---
Operative Report Date of procedure: December 11, 2019 Pre-op Diagnosis: Metastatic renal/transitional cell carcinoma with acute renal failure Post-op diagnosis: same Procedure Done: Emergent placement of right femoral vein temporary hemodialysis catheter. Specimens removed/disposition: None. Surgeon: Phil Burger Anesthesia: Local Estimated blood loss (mL): 10 Complications: None. Condition: stable Brief History: This is a 64-year-old white male with widely metastatic renal/transitional cell carcinoma. He apparently just underwent his first chemotherapy treatment and presented with severe cardiac electrical abnormalities and hyperkalemia. I was asked to place a hemodialysis catheter in the emergency room for emergent dialysis. Procedure: The patient was encountered in the emergency room. The right femoral pulse was easily palpable. The right femoral area was prepped and draped in a sterile fashion. 1% lidocaine was used for local anesthesia throughout the procedure. The right femoral vein was accessed with a needle and syringe as evidenced by the return of dark, nonpulsatile blood. A scalpel was used to slightly enlarge the skin opening at the insertion point of the J-wire. Small to medium sized dilators were then sequentially placed over the guidewire to dilate the skin and subcutaneous tissue. The dialysis catheter was then easily passed over the wire into the vein. The wire was removed. Both ports were aspirated and flushed with hep flush solution. Both ports showed excellent flow and were then left filled with concentrated hep flush solution. The catheter was sewn in place with some interrupted sutures of 3-0 nylon. A sterile dressing followed. The patient was left in the emergency room in stable but guarded condition.
[2019-12-11 06:40] LABS: Bilirubin Urine 1+ (NEGATIVE); Blood Urine 3+ (Negative); Glucose Urine UA Norm (Normal); Ketones Urine Negative (Negative); Nitrate Urine Negative (Negative); Protein Urine Neg (Negative); Specific Gravity, Urine 1.025 (1.005-1.030); Urine Appearance Hazy (CLEAR); Urine Color Dark Yellow (Yellow); Urobilinogen Urine 4 mg/dL (Negative); pH Urine 5 (5-7)
[2019-12-11 06:41] LABS: Add Urine Culture? No; Amorphous Sediment Urine 1+; Bacteria Urine 1+; Leukocyte Esterase Urine Negative (Negative)
[2019-12-11 06:44] LABS: Troponin 5 2HR Delta -2.15 ABS# (0-10)
[2019-12-11 06:45] LABS: Carbon Dioxide 9 mmol/L (22-29); Potassium 7.2 mmol/L (3.5-5.1)
--- NOTE | 2019-12-11 06:51 | P.CONIM_ITS ---
Providers/Reason For Consult Consulting Physican/Specialty*: Telma Dong DO, telenephrology Reason for Consult*: Hyperkalemia, acute kidney injury Requesting Physcian: Cherelle Simpson MD Primary Care Provider: Chilo Hughes DO History of Present Illness History of Present Illness Bart Contreras SR is a 64 year old male who presents via EMS for evaluation of weakness and back pain. Minimal urine output for 48 hours. Received first chemotherapy for metastatic transitional cell renal cancer to bone yesterday. Found to have wide complex bradycardia, hyperkalemia. Pop 50 ml urine. Meds/Allergies Home Medications and Allergies Home Medications Medication Instructions Recorded Confirmed Type aspirin 81 mg tablet,delayed 81 mg PO QDAY 11/06/19 12/07/19 History release atorvastatin 80 mg tablet 40 mg PO QDAY 11/06/19 12/11/19 History hydrocodone 10 mg-acetaminophen 1 tab PO Q6H PRN 11/06/19 12/11/19 History 325 mg tablet metoprolol tartrate 100 mg tablet 50 mg PO BID tab 11/06/19 12/11/19 History nitroglycerin 0.4 mg sublingual 0.4 mg SUBLINGUAL Q5M PRN 11/06/19 12/07/19 History tablet oxycodone-acetaminophen 5 mg-325 1 tab PO Q8H PRN 11/06/19 12/07/19 History mg tablet amitriptyline 25 mg PO DAILY 12/11/19 12/11/19 History dexamethasone 2 mg PO TID 12/11/19 12/11/19 History methocarbamol 750 mg PO TID PRN 12/11/19 12/11/19 History naproxen 500 mg PO BID PRN 12/11/19 12/11/19 History prochlorperazine maleate 10 mg PO Q4H PRN 12/11/19 12/11/19 History Allergies Allergy/AdvReac Type Severity Reaction Status Date / Time penicillin G Allergy Unconscious Verified 11/06/19 13:28 [From Bicillin C-R] penicillin G procaine Allergy Unknown Verified 11/06/19 08:26 [From Bicillin C-R] Penicillins Allergy Unknown Verified 11/06/19 08:26 Current Medications Current Medications Generic Name Dose Route Start Last Admin Trade Name Freq PRN Reason Stop Dose Admin Sodium Chloride 1,000 mls @ 100 mls/hr 12/11/19 04:30 12/11/19 05:36 Sodium Chloride 0.9% IV 100 mls/hr .Q10H SHADI Administration PFSH Acute PFSH: Medical History COPD (chronic obstructive pulmonary disease) Depression Dyslipidemia Metastatic transitional cell carcinoma to bone Myocardial infarction PAD (peripheral artery disease) Transitional cell carcinoma of right kidney Surgical History History of circumcision History of colonoscopy (2007) History of coronary artery stent placement 5x History of hernia repair Right, Left, Groin History of mandibular surgery multiple times over 2 years History of surgical removal of left nipple (06/28/19) Excision of left nipple areolar complex Port-A-Cath in place Family History Son Anesthesia complication Father CAD (coronary artery disease) Cancer Bonce Cancer Mother , Age 96 Dementia Denies family history of Bleeding disorder Social History Smoking and tobacco status: current every day smoker cigarettes Packs smoked per day: 0.5 Alcohol intake: never Lives independently: Yes Household members: spouse Marital status: Current occupational status: retired History of recent travel: No Vitals/I&O/Wt Last Vital Signs Temp 95.4 F L 12/11/19 04:23 Pulse 90 12/11/19 05:57 Resp 26 H 12/11/19 05:57 BP 152/59 12/11/19 05:57 Pulse Ox 100 12/11/19 05:57 12/10/19 12/10/19 12/11/19 14:59 22:59 06:59 Intake Total 50 / 50 Balance 50 / 50 Weight last 48 hrs Weight 45.359 kg Physical Exam Const: NUTRITIONAL APPEARANCE: cachectic OTHER: aggitated Eye: COMMON NORMALS: no scleral icterus Extremity: COMMON NORMALS: no clubbing, cyanosis or edema Urinary Catheter Management^: Pop: Cath Placed During This Visit: yes Urethral Indwelling: Yes Reason for Continuing Indwelling Catheter: Accurate Measurement of Urinary Output in Critically Ill Patients Urinary Catheter Date of Insertion: 12/11/19 Urinary Catheter Time of Insertion: 05:33 Data Micro: Micro: Microbiology 12/11/19 04:58 Blood Culture - Pr eliminary Blood SPECIMEN [facility] 12/11/19 04:58 Blood Culture - Pr eliminary Blood SPECIMEN [facility] A&P Additional A&P Information Impression: 1. Hyperkalemia 2. Metabolic acidosis 3. Acute kidney injury 4. Rule-out sepsis 5. Metastatic transitional cell CA Recommendation: Received 2 amps IV sodium bicarbonate and other treatment for hyperkalemia. IVF D5W 100 mEq NaHCO3 at 125 ml/hr. Discussed HD with patient - is wants to proceed. Femerol catheter placed, RN called, dialysis orders entered. Ultrasound kidney. Coding Level of Care Code Acute Fretted Instrument Inspector for Cash Molina
[2019-12-11 06:54] LABS: Reflex Lactate Order REFLEX LACTIC ORDERD
[2019-12-11] MEDS: heparin, porcine 1,000 unit/mL INJ 10 mL 5000 UNIT IV (06:55)
[2019-12-11 06:58] LABS: Uric Acid 15.8 mg/dL (3.4-7.0)
[2019-12-11 07:35] LABS: Lactate Dehydrogenase 4576 U/L (135-225)
[2019-12-11 08:11] LABS: Lactic Acid level (Lactate) 11.7 mmol/L (0.5-2.2)
--- NOTE | 2019-12-11 08:26 | PC.NURSE ---
HOSPITALIST IN ROOM FOR EVALUATION
[2019-12-11 08:59] LABS: Alanine Aminotransferase 397 U/L (0-41); Albumin Level 1.7 g/dL (3.5-5.2); Alkaline Phosphatase 266 IU/L (40-130); Anion Gap 31.5 (5-19); Blood Urea Nitrogen 78 mg/dL (8-23); Calcium 7.8 mg/dL (8.5-10.5); Carbon Dioxide 14 mmol/L (22-29); Chloride 97 mmol/L (98-107); Globulin 3.3 g/dL (1.3-4.6); Glomerular Filtration Rate 38.1 mL/min (90-130); Glucose 221 mg/dL (65-115); Magnesium 3.2 mg/dL (1.7-2.3); Sodium 135 mmol/L (136-145); Total Bilirubin 3.7 mg/dL (0.15-1.2); Uric Acid 16.6 mg/dL (3.4-7.0)
[2019-12-11] MEDS: levofloxacin-dextrose 5 % 750 MG/150 ML PREMIX 150 MG IV (09:02)
[2019-12-11 09:16] LABS: Aspartate Amino Transferase 1421 U/L (0-40); Phosphorus 10.4 mg/dL (2.5-4.5); Potassium 7.5 mmol/L (3.5-5.1)
[2019-12-11] MEDS: oxyCODONE-APAP 5-325 mg Tablet 1 TAB PO (10:06)
--- NOTE | 2019-12-11 10:28 | ECG_ITS ---
Measurements Intervals [place] Rate: 163 P: 260 AL: 100 QRS: 0 QRSD: 4 T: 26 QT: 229 QTc: 377 Regular rhythm with extremely wide QRS complexes, has sinusoidal appearance- consider electrical abnormalities versus medication effect Electronically Signed On 12-11-2019 19:56:06 BENCH TECHNICIAN by Di Meraz M.D. [email or web address]
[2019-12-11 11:01] LABS: Troponin 5 6HR 17.89 ng/mL (0-15); Troponin 5 6HR Delta 4.89 ng/L (0-12)
[2019-12-11 13:38] LABS: Anion Gap 14.6 (5-19); Blood Urea Nitrogen 40 mg/dL (8-23); Carbon Dioxide 26 mmol/L (22-29); Chloride 98 mmol/L (98-107); Creatinine Clr Calc Pharmacy 59.0612; Glomerular Filtration Rate 113.2 mL/min (90-130); Glucose 147 mg/dL (65-115); Osmolality Calculated 278 mOsm/kg (285-295); Potassium 4.6 mmol/L (3.5-5.1); Sodium 134 mmol/L (136-145)
[2019-12-11 16:04] LABS: INR 2.25 (0.8-1.2); Partial Thromboplastin Time 31.7 SECONDS (23.9-36.7)
[2019-12-11 16:05] LABS: D Dimer 9.91 ug/mIFEU (0-0.59)
--- NOTE | 2019-12-11 16:05 | US_ITS ---
WS: [id number] RENAL ULTRASOUND HISTORY: BOB COMPARISON: None available. TECHNIQUE: 2-D and color Doppler imaging of the kidney submitted. Right kidney: Prior RIGHT nephrectomy. Left kidney: 14.0 cm x 6.2 cm x 5.9 cm. Kidney is poorly visualized due to large amount of bowel gas. Increased echogenicity throughout the k idney. No hydronephrosis. Hypoechoic mass from the inferior pole measures 2.5 x 3.3 x 2.3 cm. Poorly visualized. Aorta: Atherosclerotic plaque. No aneurysm. Urinary Bladder: Not imaged. Small amount of ascites. US/US renal BI* [id number] IMPRESSION: 1. Status post RIGHT nephrectomy. 2. Mild chronic medical renal disease. 3. Indeterminate for mass from the lower pole LEFT kidney. No mass was identif ied on the recent CT of 12/07/2019. Mass identified today may be related to the adjacent ascites.
[2019-12-11 16:11] LABS: Glucose Point of Care 182 mg/dL (70-110)
[2019-12-11 16:14] LABS: Fibrinogen 359 mg/dL (184-529)
--- NOTE | 2019-12-11 16:42 | P.PN_ITS ---
Subjective Subjective: Interval history: RENAL FOLLOW-UP Family at bedside Medications: Reviewed: Yes Vitals/I&O/Wt Last Vital Signs Temp 97.6 F 12/11/19 15:45 Pulse 86 12/11/19 16:00 Resp 12 12/11/19 16:00 BP 94/56 12/11/19 16:00 Pulse Ox 100 12/11/19 16:00 12/11/19 12/11/19 12/11/19 06:59 14:59 22:59 Intake Total 1050 / 1050 150 / 150 Output Total 0 / 0 Balance 1050 / 1050 150 / 150 Weight last 48 hrs Weight 45.359 kg Physical Exam Urinary Catheter Management^: Pop: Cath Placed During This Visit: yes Urethral Indwelling: Yes Reason for Continuing Indwelling Catheter: Accurate Measurement of Urinary Output in Critically Ill Patients Urinary Catheter Date of Insertion: 12/11/19 Urinary Catheter Time of Insertion: 05:33 Data : 12/11/19 04:58 12/11/19 13:17 Micro: Microbiology 12/11/19 04:58 Blood Culture - Preliminary Blood SPECIMEN COLLECTED 12/11/19 04:58 Blood Culture - Preliminary Blood SPECIMEN COLLECTED A&P Additional A&P Information Seen after dialysis completed. Levophed added, repeat K normal, acid base corrected Liver function rapidly deteriorating. + metastatic disease lactate high - suspect sepsis, urine does not appear to be source. Pancultured, on broad spectrum antibiotics. I spoke with and told her prognosis very poor. Readdressed code status. For now she wants aggressive care Can discontinue bicarbonate infusion. Will check labs 12/12/19 and determine need for dialysis. 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
[2019-12-11 16:47] LABS: Lactic Acid level (Lactate) 2.3 mmol/L (0.5-2.2)
[2019-12-11 16:50] LABS: Alanine Aminotransferase 525 U/L (0-41); Albumin Level 1.6 g/dL (3.5-5.2); Alkaline Phosphatase 268 IU/L (40-130); Anion Gap 13.7 (5-19); Blood Urea Nitrogen 28 mg/dL (8-23); C Reactive Protein 163.2 mg/L (0.0-4.9); Calcium 7.1 mg/dL (8.5-10.5); Carbon Dioxide 27 mmol/L (22-29); Chloride 101 mmol/L (98-107); Creatine Phosphokinase 282 U/L (39-308); Creatinine Clr Calc Pharmacy 59.0612; Globulin 2.4 g/dL (1.3-4.6); Glomerular Filtration Rate 113.2 mL/min (90-130); Glucose 124 mg/dL (65-115); Magnesium 2.1 mg/dL (1.7-2.3); Phosphorus 4.6 mg/dL (2.5-4.5); Potassium 4.7 mmol/L (3.5-5.1); Sodium 137 mmol/L (136-145); Total Bilirubin 3.1 mg/dL (0.15-1.2)
[2019-12-11 17:03] LABS: Aspartate Amino Transferase 2235 U/L (0-40)
[2019-12-11 17:15] LABS: Procalcitonin 6.34 ng/mL (0-0.5)
[2019-12-11] MEDS: vancomycin 750 MG in sodium chloride 0.9% 250 ML 250 MG IV (18:10)
--- NOTE | 2019-12-11 18:10 | PM.PN ---
Subjective Subjective: Interval history: This morning patient was examined multiple times, in the emergency room, and in the ICU Patient's family is at bedside, states that for the past 2 weeks patient's been feeling fatigued, tired, weak poor appetite, multiple falls, has been feeling poorly Patient's family states that roughly 2 weeks ago the entire family got sick after eating from [employer], patient had a double cheeseburger from the [employer] and there, he did not feel well after, no diarrhea, but vomiting, no bloody stools reported by family members In the emergency room patient was found to have acute renal failure with hyperkalemia, hyperphosphatemia, hypomagnesemia, hypocalcemia, hyperuricemia, elevated LDH, low platelets, anemia, hypotension requiring urgent dialysis, dialysis catheter was placed by Dr. burger, nephrology was consulted Patient was moved to the intensive care unit, was receiving dialysis, had episodes of hypotension, map in the 40s, was put on Levophed After dialysis patient was examined, states that he is feeling much better no chest pain, most of his electrolyte derangements have slowly improved, no palpitations, no shortness of breath, no abdominal pain, but his abdomen is quite tight, patient still requiring minimal Levophed 3 micg/min Patient wants to remain a full code, wants all interventions Medications: Reviewed: Yes Vitals/I&O/Wt Last Vital Signs Temp 97.6 F 12/11/19 15:45 Pulse 82 12/11/19 17:37 Resp 20 H 12/11/19 17:37 BP 92/53 12/11/19 17:37 Pulse Ox 100 12/11/19 17:37 12/11/19 12/11/19 12/11/19 06:59 14:59 22:59 Intake Total 1050 / 1050 150 / 150 0 / 150 Output Total 0 / 0 120 / 120 Balance 1050 / 1050 150 / 150 -120 / 30 Weight last 48 hrs Weight 45.359 kg Physical Exam Const: COMMON NORMALS: no apparent distress and oriented x3 HENMT: COMMON NORMALS: normocephalic HEAD & SCALP: normocephalic Neck/C-Spine: COMMON NORMALS: no JVD Resp: COMMON NORMALS: normal respiratory effort, no retractions, no use of accessory muscles and clear to auscultation bilaterally AUSCULTATION: clear to auscultation bilaterally Cardio: COMMON NORMALS: no JVD, regular rate, regular rhythm, S1 normal heart sound and S2 normal heart sound RATE: regular rate RHYTHM: regular rhythm HEART SOUNDS: S1 normal and S2 normal GI: INSPECTION: Yes abdominal distension AUSCULTATION: Yes normoactive bowel sounds PALPATION: Yes firm, Yes tender, No guarding, No rigid and Yes hepatomegaly Extremity: COMMON NORMALS: normal capillary refill, no clubbing, cyanosis or edema, no calf tenderness and no pedal edema Neuro: COMMON NORMALS: oriented x3 Psych: COMMON NORMALS: mental status grossly normal Urinary Catheter Management^: Pop: Cath Placed During This Visit: yes Urethral Indwelling: Yes Reason for Continuing Indwelling Catheter: Accurate Measurement of Urinary Output in Critically Ill Patients Urinary Catheter Date of Insertion: 12/11/19 Urinary Catheter Time of Insertion: 05:33 Data : 12/11/19 04:58 12/11/19 16:15 Micro: Microbiology 12/11/19 04:58 Blood Culture - Preliminary Blood SPECIMEN COLLECTED 12/11/19 04:58 Blood Culture - Preliminary Blood SPECIMEN COLLECTED A&P Assessment and plan (1) Acute hyperkalemia: Status: Acute Code(s): E87.5 - Hyperkalemia (2) Acute renal failure: Status: Acute Qualifiers: Acute renal failure type: with acute tubular necrosis Qualified Code(s): N17.0 - Acute kidney failure with tubular necrosis Code(s): N17.9 - Acute kidney failure, unspecified (3) 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 Status post cisplatin and gemcitabine today for first time. Status: Acute Code(s): C79.51 - Secondary malignant neoplasm of bone (4) Generalized weakness: Multifactorial Status: Acute Code(s): R53.1 - Weakness (5) COPD (chronic obstructive pulmonary disease): Status: Acute Qualifiers: COPD type: unspecified COPD Qualified Code(s): J44.9 - Chronic obstructive pulmonary disease, unspecified Code(s): J44.9 - Chronic obstructive pulmonary disease, unspecified Additional A&P Information Acute hyperkalemia, hyperphosphatemia, hypermagnesemia, hypocalcemia, hyperuricemia, elevated LDH, with acute renal failure, elevated T bili of 3.1, low platelets, positive FDP, significant transaminitis, ammonia levels 90 Differential includes: Tumor lysis syndrome versus gemcitabine and/or associated hemolytic uremic syndrome -I spoke to Dr. Cardoza over the phone, he thinks that tumor lysis syndrome is unlikely associated with gemcitabine -Patient's first round of gemcitabine was on Tuesday -Definitely gemcitabine is associated with the majority of patients electrolyte and blood count abnormalities -Patient's family does state that 2 weeks ago he had hamburgers from [employer] that made the entire family sick -Patient has a right femoral vein temporary hemodialysis catheter placed by Dr. Burger -Status post 4 hours hemodialysis, acute hyperkalemia has resolved, creatinine is 0.7, BUN 28, other electrolyte abnormalities are slowly resolving -Still hypocalcemic, calcium 7.1, no significant EKG abnormalities, no muscle spasms, -Has received bicarb Plan: -Requires ICU admission for close monitoring -Continue to monitor electrolytes closely -Currently receiving normal saline -Continue telemetry monitoring -Nephrology is on consult -Patient's status is stable, but is critical Sepsis?, hypotensive episodes, white blood cell count 24, lactic acid 17.9, pro-Leif 6, urine unremarkable for infectious source, is requiring minimal Levophed to maintain map greater than 65, chest x-ray unremarkable for infectious source, abdomen is distended and tight, no fevers -Patient has been on steroids since last episode of radiation therapy to his lower thoracic and lumbar spine a few weeks ago which could be an explanation for the leukocytosis Plan: -Continue broad-spectrum antibiotics vancomycin and Primaxin -Follow urine cultures, follow blood cultures -CT of the abdomen pelvis will be obtained -Monitor clinical status, de-escalate antibiotics as needed, so far no infectious source can be found -Continue Levophed with map greater than 65, receiving IV fluids, hopefully de-escalate -Stool studies pending Shock liver: -Patient shows massive transaminitis -AST 2235, ALT 525, ammonia 95, T bili 3.1, INR 2.25 -Patient does have metastatic disease to his liver -Differential includes shock liver from hypotension and/or gemcitabine associated transaminitis Plan: -Hold hepatotoxic agents -Monitor LFTs -We will obtain a CT of the abdomen/ pelvis -Obtain acute hep panel Anemia, hemoglobin 8.8: Some component dilutional, some component hemolytic given elevated LDH, continue to monitor, transfuse if less than 7 -We will obtain peripheral smear Thrombocytopenia platelet count of 40: Some component dilutional, some component hemolytic given elevated LDH, patient has received heparin for dialysis Plan: -Monitor for bleeding -Monitor platelet count -We will obtain peripheral smear Metastatic transitional cell carcinoma to the bone -Status post chemoradiation -For cycle of gemcitabine was on Tuesday -Patient received radiation therapy to thoracic and lumbar spine, received steroids -Currently has signs of protein calorie malnutrition, dehydration, generalized weakness, cachectic -Patient and family would like to meet with hospice -Currently patient is a full code -Currently patient wants all interventions Attestations Medical Necessity Statement*: Patient requires continued hospitalization, ICU admission, for tumor lysis syndrome, sepsis, shock liver, multiorgan dysfunction Coding Level of Care Code Acute Industrial Safety And Health Manager for [facility] Fwd Diagnoses Acute hyperkalemia E87.5 Acute renal failure N17.0 Acute renal failure type: with acute tubular necrosis Metastatic transitional cell carcinoma to bone C79.51 Generalized weakness R53.1 COPD (chronic obstructive pulmonary disease) J44.9 COPD type: unspecified COPD
[2019-12-11 18:22] LABS: Erythrocyte Sedimentation Rate 31 mm/hr (0-10)
[2019-12-11 18:23] LABS: Basophils # 0.2 10^3/uL (0.0-0.1); Basophils % 0.7 %; Hematocrit 25.4 % (42.0-52.0); Hemoglobin 8.8 g/dL (11.7-16.6); Lymphocytes # 0.2 10^3/uL (0.8-4.8); Lymphocytes % 0.6 %; Mean Corpuscular HGB Conc 34.6 g/dL (30.0-36.0); Mean Corpuscular Hemoglobin 29.9 pg (28.0-34.0); Mean Corpuscular Volume 86.4 fL (80-94); Mean Platelet Volume 13.4 fL (7.4-10.4); Monocytes # 0.2 10^3/uL (0.2-0.9); Monocytes % 0.6 %; Nucleated Red Blood Cells % 0.1 %; Platelet Count 40 10^3/cmm (130-400); Red Blood Count 2.94 10^6/uL (4.1-5.3)
[2019-12-11 18:32] LABS: Neutrophils % 98.1 %
[2019-12-11 19:49] LABS: LAB Peripheral Smear Sent for Review
[2019-12-11 19:51] LABS: Hepatitis A Antibody IgM. Non-Reactive (Nonreactive); Hepatitis B Core IgM Non-Reactive (Nonreactive); Hepatitis B Surface Antigen. Non-Reactive (Nonreactive); Hepatitis C Virus Antibody Non-Reactive (Nonreactive)
[2019-12-11 20:35] LABS: Lactic Acid level (Lactate) 2.8 mmol/L (0.5-2.2)
[2019-12-11 21:58] LABS: Influenza A by IFA Negative (Negative); Influenza B by IFA Negative (Negative)
--- NOTE | 2019-12-11 23:00 | PC.NURSE ---
Shift Change Pt sleepy, easily responds to stimuli. Answers are appropriate, delay in finding the correct words. and numerous family members at bedside. Pt denies needing to be turned, legs are elevated on pillows. VSS and charted, levophed gtt @ 3 mcg infusing in left cw port. 3+ edema to bilateral lower ext, abd rigid and hypoactive bowel sounds. Per pt has not had BM for 3 weeks since food poisoning from [employer]. Pt on 2LNC, HR 80's sinus. Pt requesting water and coke and coffee - provided. Pt swallowed w/o event. Right femoral dialysis cath in place w dressing C/D/I. Pop to gravity, minimal amount in tubing, dark in color. All questions answered from family, many of whom recently arrived from out of town.
[2019-12-12] VITALS (16 sets, daily range): BP systolic 85–106; BP diastolic 47–72; PULSE 87–110; RESP 9–22; TEMP 36.9; O2SAT 93–98
[2019-12-12 01:10] LABS: Lactic Acid level (Lactate) 4.2 mmol/L (0.5-2.2)
--- NOTE | 2019-12-12 01:51 | PC.NURSE ---
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 states she does not want additional CT's if using contrast due to risk of further damaging kidneys. Plan per and 7P physician, wait until can speak with primary physician before additional CT's.
[2019-12-12] MEDS: oxyCODONE-APAP 5-325 mg Tablet 1 TAB PO ×2 (02:36→20:46)
[2019-12-12] MEDS: sodium chloride 0.9% 1,000 ML 100 ML IV ×2 (04:14→13:40)
[2019-12-12] MEDS: morphine 4 mg/mL SDV 1 mL 2 MG IVP (04:15)
--- NOTE | 2019-12-12 04:20 | PC.NURSE ---
Lab drawn from [facility]. Pt states I'm in the back of a hospital, is that right? Pt unable to remember date. Pt reoriented. I talk to myself, is that alright? Pt states his pain is 10/10 from my guts .
[2019-12-12 04:33] LABS: Hematocrit 26.1 % (42.0-52.0); Hemoglobin 8.9 g/dL (11.7-16.6); Lymphocytes # 0.1 10^3/uL (0.8-4.8); Lymphocytes % 0.3 %; Mean Corpuscular HGB Conc 34.1 g/dL (30.0-36.0); Mean Corpuscular Hemoglobin 30.3 pg (28.0-34.0); Mean Corpuscular Volume 88.8 fL (80-94); Mean Platelet Volume 12.7 fL (7.4-10.4); Monocytes # 0.1 10^3/uL (0.2-0.9); Monocytes % 0.3 %; Neutrophils # 39.1 10^3/uL (1.8-7.7); Neutrophils % 96.7 %; Nucleated Red Blood Cells % 0.1 %; Platelet Count 33 10^3/cmm (130-400); Red Blood Count 2.94 10^6/uL (4.1-5.3); Red Cell Distribution Width 17.6 % (12.1-15.1)
[2019-12-12 04:42] LABS: Lactic Acid level (Lactate) 3.6 mmol/L (0.5-2.2)
[2019-12-12 04:52] LABS: Alanine Aminotransferase 613 U/L (0-41); Albumin Level 1.4 g/dL (3.5-5.2); Alkaline Phosphatase 392 IU/L (40-130); Anion Gap 18.6 (5-19); Blood Urea Nitrogen 46 mg/dL (8-23); Carbon Dioxide 22 mmol/L (22-29); Chloride 102 mmol/L (98-107); Globulin 2.7 g/dL (1.3-4.6); Glomerular Filtration Rate 60.8 mL/min (90-130); Glucose 129 mg/dL (65-115); Sodium 136 mmol/L (136-145); Total Bilirubin 3.8 mg/dL (0.15-1.2); Total Protein 4.1 g/dL (6.6-8.7)
[2019-12-12 04:53] LABS: Magnesium 2.3 mg/dL (1.7-2.3)
[2019-12-12 05:08] LABS: Aspartate Amino Transferase 2418 U/L (0-40); Potassium 6.6 mmol/L (3.5-5.1)
[2019-12-12 05:09] LABS: Phosphorus 8.2 mg/dL (2.5-4.5)
--- NOTE | 2019-12-12 05:14 | ECG_ITS ---
Measurements Intervals [place] Rate: 103 P: -4 AL: 117 QRS: 74 QRSD: 98 T: 38 QT: 364 QTc: 477 SINUS TACHYCARDIA WITH SHORT AL INTERVAL ABNORMAL RHYTHM ECG WARNING: DATA QUALITY MAY AFFECT INTERPRETATION Compared to ECG 12/11/2019 10:48:31 Short AL interval now present Sinus rhythm no longer present Intraventricular conduction delay no longer present ST (T wave) deviation no longer present Electronically Signed On 12-12-2019 15:17:45 MULTICULTURAL MANAGER by Bandar Roberts M.D. [email or web address]
[2019-12-12 05:51] LABS: Slide Review Slide Review Perform; White Blood Count 40.4 10^3/uL (4.0-10.0)
--- NOTE | 2019-12-12 07:21 | PC.NURSE ---
pt. awakened easily. not sure about date or where he is. aske that i wait awhile until he got woke up.
--- NOTE | 2019-12-12 07:58 | CT_ITS ---
WS: [id number] CTA CHEST WITH CT ABDOMEN AND PELVIS. HISTORY: Hypoxia, rule out pulmonary embolism. Renal cancer. TECHNIQUE: CT angiogram is performed through the chest. Additional imaging is performed through the a bdomen and pelvis with IV contrast. Sagittal and coronal reformats have been submitted. MIP imaging also reviewed. All CT scans at [facility] use at least one of these dose optimization tech niques: automated exposure control; mA and/or kV adjustment per patient size (includes targeted exams where dose is matched to clinical indication); or iterative reconstruction. Contrast: Omnipaque 350; 95 cc IV. DLP: 1018.29 mGy.cm COMPARISON: 12/07/2019, 06/12/2019 Chest CTA: Opacification of the pulmonary arteries. No filling defects or pulmonary embolism. Pulmonary artery s ize is normal. Atherosclerosis aorta with no aneurysm or dissection. Cardiac size is normal. No peric ardial effusion. Severe emphysema with no pulmonary mass or nodule is identified. Small bilateral ple ural effusions with compressive atelectasis. Effusions have slightly increased in size since 0. Prominent mediastinal and hilar soft tissue. Metastatic adenopathy was seen on 10/20/2019 PET/CT. Abdomen CT: Liver is markedly enlarged and there are numerous, confluent metastatic lesions. Spleen i s poorly visualized with poor enhancement. Pancreas is very difficult to visualize due to the large l iver. Gallbladder is unchanged. Adrenal glands are difficult to visualize. RIGHT kidney has been martina ramakrishna. No LEFT renal abnormality. Moderate size aortic aneurysm is unchanged with a maximum diameter 3. 8 cm. Large amount of circumferential thrombus. No evidence for rupture. Small amount of ascites surr ounding the liver. Mesenteric edema and soft tissue anasarca. Periaortic lymphadenopathy is again suspected. Difficult to visualize discrete lymph nodes due to the amount of edema. Pelvic CT: Free fluid in the pelvis. Urinary bladder contains a Pop catheter nondistended. No GI tr act obstruction is evident. RIGHT femoral venous catheter. Patient has known metastatic disease to the osseous structures. There are numerous vertebral bodies i n the thoracic and lumbar spine involved with metastatic disease. These were described on the MRI of 11/13/2019. Most significant disease at T4 and T7. No cord compression. Metastatic lesion involving th e RIGHT T4 vertebral body extends into the RIGHT T4-5 foramen. Age-indeterminate nondisplaced fractur e involving the RIGHT T7 transverse process. CT/CT angio chest w abd pel w con IMPRESSION: 1. No pulmonary embolism. 2. Small but slightly increased bilateral pleural effusions. 3. Chronic emphysema. 4. Patient has known innumerable metastatic lesions throughout the liver. 5. Known extensive bony metastasis. 6. New, age indeterminate RIGHT T7 transverse process fracture. 7. Mild tumor encroachment into the RIGHT T4-5 foramen. 8. Anasarca and a small amount of ascites. 9. Prior RIGHT nephrectomy. 10. Stable abdominal aortic aneurysm.
[2019-12-12 08:20] LABS: Lactic Sepsis W/Reflex 2.9 mmol/L (0.5-2.2)
[2019-12-12] MEDS: iohexol 350 mg/mL 100 mL Btl IV (09:36)
[2019-12-12 09:53] LABS: Reflex Lactate Order REFLEX LACTIC ORDERD
[2019-12-12] MEDS: atorvastatin 40 mg Tablet PO (09:55)
--- NOTE | 2019-12-12 10:26 | PC.CHAP ---
Pastoral Care Encounter/Spiritual Assessment Type of Contact [] Declined judge's clerk visit [] Patient/Family/Request visit [] Outpatient visit [] Follow-up visit [] Physician referral [] Code/Alert [x] Routine visit [] Staff referral [x] Actively dying [] Patient sleeping [] Family support [] [] Out of room [] Palliative care [] [] Receiving care in room [] Pre-surgical visit [] Trauma [] Long length of stay [x] ICU visit [] Other: Relational/Emotional Strength [] Patient feels connected with others/family/visitors/staff [] Distress [] Loneliness/isolation [] Abandonment Spirituality of Patient [] Person of Renetta [] Attends Religious of their Renetta [] Believes in Prayer [] Reads Bible or Religion materials [] There are Spiritual issues to be addressed Junior Electrical Engineer Interventions [x] Prayer [] Active listening [] Non-anxious presence [] Spiritual/emotional support [] Crisis/trauma care [] Spiritual counseling [] Bereavement support [] Provided bereavement packet [] Provided Bible/devotional materials [] Provided toy/stuffed animal, coloring book to patient or family member [] Provided Communion [] Anointing/[place] [] Salvation [x] Completed spiritual assessment [] Other: Impact on Illness or Injury [] Angry [] Fearful [] Anxious [] Often cries [] Exhaustion [] Unable to work [] Unable to attend hindu [] Unable to walk/stand [] Unable to read [] Unable to drive [] Unable to eat/drink [] Unable to sleep [] Unable to be with family [] Patient intubated [] Other: Summary Patient undergoing more tests, but feels as though he is not going to leave this hospital. Time spent with patient 10min
--- NOTE | 2019-12-12 10:32 | P.PN_ITS ---
Subjective Subjective: Interval history: This morning patient was examined he is lying in bed, states that he feels a bit better, continues to have a poor appetite, abdomen feels tight, no fevers, no chills, no nausea, vomiting, no lightheadedness, no dizziness, no chest pain, patient is willing to see hospice, but currently wants all interventions done for him Vitals/I&O/Wt Last Vital Signs Temp 98.5 F 12/11/19 22:14 Pulse 103 H 12/12/19 05:45 Resp 22 H 12/12/19 05:45 BP 101/71 12/12/19 05:45 Pulse Ox 96 12/12/19 05:45 12/11/19 12/12/19 12/12/19 22:59 06:59 14:59 Intake Total 1200 / 1350 1391.14 / 2741.14 Output Total 120 / 120 100 / 220 Balance 1080 / 1230 1291.14 / 2521.14 Weight last 48 hrs Weight 56.291 kg Weight 45.359 kg Physical Exam Const: COMMON NORMALS: no apparent distress and oriented x3 HENMT: COMMON NORMALS: normocephalic HEAD & SCALP: normocephalic Neck/C-Spine: COMMON NORMALS: no JVD Resp: COMMON NORMALS: normal respiratory effort, no retractions, no use of accessory muscles and clear to auscultation bilaterally AUSCULTATION: clear to auscultation bilaterally Cardio: COMMON NORMALS: no JVD, regular rate, regular rhythm, S1 normal heart sound and S2 normal heart sound RATE: regular rate RHYTHM: regular rhythm HEART SOUNDS: S1 normal and S2 normal GI: INSPECTION: Yes abdominal distension AUSCULTATION: Yes normoactive bowel sounds PALPATION: Yes firm, Yes tender, No guarding, No rigid and Yes hepatomegaly Neuro: COMMON NORMALS: oriented x3 Psych: COMMON NORMALS: mental status grossly normal Urinary Catheter Management^: Pop: Cath Placed During This Visit: yes Urethral Indwelling: Yes Reason for Continuing Indwelling Catheter: Accurate Measurement of Urinary Output in Critically Ill Patients Urinary Catheter Date of Insertion: 12/11/19 Urinary Catheter Time of Insertion: 05:33 Data : 12/12/19 04:10 12/12/19 04:10 Micro: Microbiology 12/11/19 04:58 Blood Culture - Preliminary Blood NEGATIVE TO DATE 12/11/19 04:58 Blood Culture - Preliminary Blood NEGATIVE TO DATE A&P Assessment and plan (1) Acute hyperkalemia: Status: Acute Code(s): E87.5 - Hyperkalemia (2) Acute renal failure: Status: Acute Qualifiers: Acute renal failure type: with acute tubular necrosis Qualified Code(s): N17.0 - Acute kidney failure with tubular necrosis Code(s): N17.9 - Acute kidney failure, unspecified (3) 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 Status post cisplatin and gemcitabine today for first time. Status: Acute Code(s): C79.51 - Secondary malignant neoplasm of bone (4) Generalized weakness: Multifactorial Status: Acute Code(s): R53.1 - Weakness (5) COPD (chronic obstructive pulmonary disease): Status: Acute Qualifiers: COPD type: unspecified COPD Qualified Code(s): J44.9 - Chronic obstructive pulmonary disease, unspecified Code(s): J44.9 - Chronic obstructive pulmonary disease, unspecified Additional A&P Information Acute hyperkalemia, hyperphosphatemia, hypermagnesemia, hypocalcemia, hyperuricemia, elevated LDH, with acute renal failure, elevated T bili, low platelets, positive FDP, significant transaminitis, ammonia levels Differential includes: Tumor lysis syndrome versus gemcitabine and/or associated hemolytic uremic syndrome -I spoke to Dr. Cadroza over the phone, he thinks that tumor lysis syndrome is unlikely associated with gemcitabine -Patient's first round of gemcitabine was on Tuesday -Definitely gemcitabine is associated with the majority of patients electrolyte and blood count abnormalities -Patient has a right femoral vein temporary hemodialysis catheter placed by Dr. Burger -Status post 4 hours hemodialysis, acute hyperkalemia has resolved, creatinine is 0.7, BUN 28, other electrolyte abnormalities are slowly resolving -Still hypocalcemic, calcium 6.0, no significant EKG abnormalities, no muscle spasms, Plan: -Requires ICU admission for close monitoring -Continue to monitor electrolytes closely -Currently receiving normal saline -Continue telemetry monitoring -Nephrology is on consult -Patient's status is stable, but is critical Sepsis?, hypotensive episodes, white blood cell count increased to 40.4, lactic acid 3.6, pro-Leif 6, urine unremarkable for infectious source, is requiring minimal Levophed to maintain map greater than 65, chest x-ray unremarkable for infectious source, abdomen is distended and tight, no fevers -Patient has been on steroids since last episode of radiation therapy to his lower thoracic and lumbar spine a few weeks ago which could be an explanation for the leukocytosis Plan: -Continue broad-spectrum antibiotics vancomycin and Primaxin -Follow urine cultures, follow blood cultures -CT of the abdomen pelvis will be obtained -Monitor clinical status, de-escalate antibiotics as needed, so far no infectious source can be found -Continue Levophed with map greater than 65, receiving IV fluids, hopefully de- escalate -Stool studies pending Shock liver: -Patient shows massive transaminitis -AST 2418, ALT 613, ammonia 95, T bili 3.8, INR 2.25 -Patient does have metastatic disease to his liver -Differential includes shock liver from hypotension and/or gemcitabine associated transaminitis Plan: -Hold hepatotoxic agents -Monitor LFTs -We will obtain a CT of the abdomen/ pelvis Anemia, hemoglobin 8.8: Some component dilutional, some component hemolytic given elevated LDH, continue to monitor, transfuse if less than 7 -We will obtain peripheral smear Thrombocytopenia platelet count of 33: some component dilutional, some component hemolytic given elevated LDH, patient has received heparin for dialysis Plan: -Monitor for bleeding -Monitor platelet count -We will obtain peripheral smear Metastatic transitional cell car cinoma to the bon/liver/lmphnodes -Status post chemoradiation -For cycle of gemcitabine was on Tuesday -Patient received radiation therapy to thoracic and lumbar spine, received steroids -Currently has signs of protein calorie malnutrition, dehydration, generalized weakness, cachectic -Patient and family would like to meet with hospice -Currently patient is a full code -Currently patient wants all interventions Attestations Medical Necessity Statement*: Patient has continued hospitalization due to hyperkalemia, HUS versus tumor lysis syndrome, shock liver, metastatic disease Coding Level of Care 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
--- NOTE | 2019-12-12 10:41 | P.PN_ITS ---
Subjective Subjective: Interval history: awake and alert this morning. little urine output levophed at 4 mcg Medications: Reviewed: Yes Vitals/I&O/Wt Last Vital Signs Temp 98.5 F 12/11/19 22:14 Pulse 103 H 12/12/19 05:45 Resp 22 H 12/12/19 05:45 BP 101/71 12/12/19 05:45 Pulse Ox 96 12/12/19 05:45 12/11/19 12/12/19 12/12/19 22:59 06:59 14:59 Intake Total 1200 / 1350 1391.14 / 2741.14 Output Total 120 / 120 100 / 220 Balance 1080 / 1230 1291.14 / 2521.14 Weight last 48 hrs Weight 56.291 kg Weight 45.359 kg Physical Exam Urinary Catheter Management^: Pop: Cath Placed During This Visit: yes Urethral Indwelling: Yes Reason for Continuing Indwelling Catheter: Accurate Measurement of Urinary Output in Critically Ill Patients Urinary Catheter Date of Insertion: 12/11/19 Urinary Catheter Time of Insertion: 05:33 Data : 12/12/19 04:10 12/12/19 04:10 Other Labs: K 6.6, labs consistent with DIC Micro: Microbiology 12/11/19 04:58 Blood Culture - Preliminary Blood NEGATIVE TO DATE 12/11/19 04:58 Blood Culture - Preliminary Blood NEGATIVE TO DATE CT Abd/Pel: Radiologist's impression: diffuse hepatic mets and bone mets, no PE, + anasarca A&P Additional A&P Information Impression: 1. Hyperkalemia 2. Metabolic acidosis - lactic acid - improved 3. Acute kidney injury, oligoanuric, possible hepatorenal syndrome 4. Rule-out sepsis: blood cultures no growth 5. Metastatic transitional cell CA 6. Anemia, thrombocytopenia Recommendation: HD today. Patient consents to procedure. dialysis orders entered, 2K bath, 500 ml fluid removal Calculated eGFR is not accurate. 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
--- NOTE | 2019-12-12 11:21 | PC.NURSE ---
dialysis in progress.
--- NOTE | 2019-12-12 12:14 | PC.NURSE ---
lots of family here
[2019-12-12] MEDS: metoprolol tartrate 1 mg/1 mL SDV 5 mL 5 MG IV (12:43)
--- NOTE | 2019-12-12 12:58 | PC.NURSE ---
heart rate jumped up to 120s. dr torres was notified. metoprolol given
--- NOTE | 2019-12-12 13:06 | PC.NURSE ---
heart rate previously charted should have been 220s
--- NOTE | 2019-12-12 13:13 | PC.NURSE ---
lots of family in room, talked with them reguarding cpr. one daughter said she would talked to her father. pt. stated he wants cpr done. explained to family that it would likely break his ribs. they continue to wnt to follow his wishes
--- NOTE | 2019-12-12 13:32 | PC.NURSE ---
s.r.-s.t. dialysis continues with cleaning
[2019-12-12] MEDS: heparin, porcine 1,000 unit/mL INJ 10 mL HE (13:41)
--- NOTE | 2019-12-12 14:18 | PC.NURSE ---
fluid bolus in
[2019-12-12] MEDS: vancomycin 1,000 MG in sodium chloride 0.9% 250 ML 250 MG IV (15:31)
--- NOTE | 2019-12-12 15:37 | PC.NURSE ---
cilastatin and vanc late d/t dialysis
[2019-12-12 16:09] LABS: LAB Peripheral Smear Sent for Review
[2019-12-12 18:06] LABS: Phosphorus 4.5 mg/dL (2.5-4.5)
[2019-12-12 18:23] LABS: Alanine Aminotransferase 522 U/L (0-41); Albumin Level 2.1 g/dL (3.5-5.2); Alkaline Phosphatase 439 IU/L (40-130); Anion Gap 15.4 (5-19); Blood Urea Nitrogen 19 mg/dL (8-23); Calcium 6.7 mg/dL (8.5-10.5); Carbon Dioxide 26 mmol/L (22-29); Chloride 99 mmol/L (98-107); Globulin 1.9 g/dL (1.3-4.6); Glomerular Filtration Rate 113.2 mL/min (90-130); Glucose 104 mg/dL (65-115); Potassium 4.4 mmol/L (3.5-5.1); Sodium 136 mmol/L (136-145); Total Bilirubin 4.2 mg/dL (0.15-1.2)
[2019-12-12 18:34] LABS: Aspartate Amino Transferase 1923 U/L (0-40)
[2019-12-12] MEDS: amitriptyline 25 mg Tablet PO (20:46)
[2019-12-13] VITALS (40 sets, daily range): BP systolic 65–97; BP diastolic 44–60; PULSE 97–209; RESP 10–31; TEMP 36.1–36.7; O2SAT 77–99
--- NOTE | 2019-12-13 01:33 | PC.NURSE ---
0125 patient began having runs of a-fib with RVR. heat rate up to 200bpm. patient did vagal maneuvers to convert back to NS/ST as baseline for this patient. called and informed of patients change in heart rate. patients vitals are as follows: HR:109 o2: 92 rr:20 bp:80/56
--- NOTE | 2019-12-13 01:49 | PC.NURSE ---
0145 patient in and out of a-fib with RVR. patient is converting on his own. patient is A&O X3 and denies any pain. levophed titrated to 12mcg at this time for hypotension. patient currently 99bpm SR.
[2019-12-13] MEDS: morphine 4 mg/mL SDV 1 mL 2 MG IVP ×14 (02:30→23:54)
--- NOTE | 2019-12-13 02:40 | PC.NURSE ---
0230 patient still converting in and out of a-fib with RVR. patients oxygen dropped to 78%. O2 increased to 10L and respiratory therapist called for oxy mask. oxy mask applied at 12L. oxygen saturation improved to 92%. patient grimacing in pain. 2mg of morphine given for pain rated 8/10. patient resting comfortably, daughter at bedside. HR: 113 RR: 23 O2: 92% BP:97/81
[2019-12-13 04:48] LABS: Basophils % 0.4 %; Eosinophils % 0.2 %; Hematocrit 22.2 % (42.0-52.0); Hemoglobin 7.4 g/dL (11.7-16.6); Lymphocytes # 0.1 10^3/uL (0.8-4.8); Lymphocytes % 1.9 %; Mean Corpuscular HGB Conc 33.3 g/dL (30.0-36.0); Mean Corpuscular Hemoglobin 28.2 pg (28.0-34.0); Mean Corpuscular Volume 84.7 fL (80-94); Monocytes % 0.8 %; Neutrophils # 4.8 10^3/uL (1.8-7.7); Neutrophils % 90.7 %; Nucleated Red Blood Cells # 0.1 /100WBC; Nucleated Red Blood Cells % 1.1 %; Red Blood Count 2.62 10^6/uL (4.1-5.3); Red Cell Distribution Width 17.2 % (12.1-15.1); White Blood Count 5.3 10^3/uL (4.0-10.0)
[2019-12-13 05:04] LABS: Phosphorus 5.6 mg/dL (2.5-4.5)
[2019-12-13 05:05] LABS: Alanine Aminotransferase 422 U/L (0-41); Albumin Level 2.1 g/dL (3.5-5.2); Alkaline Phosphatase 428 IU/L (40-130); Anion Gap 16.6 (5-19); Blood Urea Nitrogen 30 mg/dL (8-23); Calcium 6.2 mg/dL (8.5-10.5); Carbon Dioxide 25 mmol/L (22-29); Chloride 99 mmol/L (98-107); Globulin 2.1 g/dL (1.3-4.6); Glomerular Filtration Rate 67.2 mL/min (90-130); Glucose 123 mg/dL (65-115); Potassium 4.6 mmol/L (3.5-5.1); Sodium 136 mmol/L (136-145); Total Bilirubin 5.8 mg/dL (0.15-1.2); Total Protein 4.2 g/dL (6.6-8.7)
[2019-12-13 05:26] LABS: Aspartate Amino Transferase 1539 U/L (0-40)
[2019-12-13 05:56] LABS: Platelet Count 13 10^3/cmm (130-400); Slide Review Slide Review Perform
[2019-12-13 06:32] LABS: Cortisol Random 19.66 mcg/dL (2.47-19.5)
[2019-12-13] MEDS: LORazepam 2 mg/mL INJ 1 mL 1 MG IVP ×7 (10:00→23:54)
--- NOTE | 2019-12-13 14:07 | PM.PN ---
Subjective Subjective: Interval history: Unfortunately this morning patient is requiring increased amount of oxygen, is having persistent hypotensive episodes despite being on maximal doses of Levophed, is weak, is having intermittent episodes of tachycardia heart rates as high as 180s, fatigued, frail, poor appetite, worsening anemia of 7.4, thrombocytopenia of 13, transaminitis is improving I discussed the goals of care with patient and entire family at bedside, advised patient of his poor prognosis, patient has already agreed to hospice, however I feel the patient's condition has become more severe such that further interventions would have no clinically significant benefit. I advised patient that we can continue interventions versus starting comfort care here. After discussion with patient and family, all questions answered, patient voiced understanding patient agreed to proceed with comfort care. The following discussion was made in front of the nurse at bedside. Vitals/I&O/Wt Last Vital Signs Temp 97.9 F 12/13/19 04:03 Pulse 121 H 12/13/19 13:00 Resp 24 H 12/13/19 13:00 BP 79/55 12/13/19 13:00 Pulse Ox 96 12/13/19 13:00 12/12/19 12/13/19 12/13/19 22:59 06:59 14:59 Intake Total 2698.653 / 3731.986 454.00 / 4185.986 100 / 100 Output Total 100 / 100 25 / 125 Balance 2598.653 / 3631.986 429.00 / 4060.986 100 / 100 Weight last 48 hrs Weight 63.248 kg Weight 56.291 kg Physical Exam Const: COMMON NORMALS: oriented x3 GENERAL APPEARANCE: lethargic and ill appearing NUTRITIONAL APPEARANCE: cachectic and thin ORIENTATION/CONSCIOUSNESS: Yes lethargic Resp: EFFORT & INSPECTION: Yes tachypneic and Yes uses accessory muscles AUSCULTATION: wheezes Cardio: COMMON NORMALS: regular rate, S1 normal heart sound and S2 normal heart sound RATE: regular rate and tachycardic HEART SOUNDS: S1 normal and S2 normal GI: COMMON NORMALS: normal to inspection, nondistended, normoactive bowel sounds Neuro: COMMON NORMALS: oriented x3 SENSORIUM/ORIENTATION: Yes lethargic Urinary Catheter Management^: Pop: Cath Placed During This Visit: yes Urethral Indwelling: Yes Reason for Continuing Indwelling Catheter: Accurate Measurement of Urinary Output in Critically Ill Patients Urinary Catheter Date of Insertion: 12/11/19 Urinary Catheter Time of Insertion: 05:33 Data : 12/13/19 04:00 12/13/19 04:00 A&P Assessment and plan (1) Acute hyperkalemia: Status: Acute Code(s): E87.5 - Hyperkalemia (2) Acute renal failure: Status: Acute Qualifiers: Acute renal failure type: with acute tubular necrosis Qualified Code(s): N17.0 - Acute kidney failure with tubular necrosis Code(s): N17.9 - Acute kidney failure, unspecified (3) 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 Status post cisplatin and gemcitabine today for first time. Status: Acute Code(s): C79.51 - Secondary malignant neoplasm of bone (4) Generalized weakness: Multifactorial Status: Acute Code(s): R53.1 - Weakness (5) COPD (chronic obstructive pulmonary disease): Status: Acute Qualifiers: COPD type: unspecified COPD Qualified Code(s): J44.9 - Chronic obstructive pulmonary disease, unspecified Code(s): J44.9 - Chronic obstructive pulmonary disease, unspecified Additional A&P Information Will proceed with inpatient comfort care, comfort care order set I briefly spoke with Dr. Cardoza, who is agreeable with plan Acute hyperkalemia, hyperphosphatemia, hypermagnesemia, hypocalcemia, hyperuricemia, elevated LDH, with acute renal failure, elevated T bili, low platelets, positive FDP, significant transaminitis, ammonia levels Differential includes: Tumor lysis syndrome versus gemcitabine and/or associated hemolytic uremic syndrome -I spoke to Dr. Cardoza over the phone, he thinks that tumor lysis syndrome is unlikely associated with gemcitabine -Patient's first round of gemcitabine was on Tuesday -Definitely gemcitabine is associated with the majority of patients electrolyte and blood count abnormalities -Patient has a right femoral vein temporary hemodialysis catheter placed by Dr. Burger -Status post 4 hours hemodialysis, acute hyperkalemia has resolved, creatinine is 0.7, BUN 28, other electrolyte abnormalities are slowly resolving -Still hypocalcemic, calcium 6.0, no significant EKG abnormalities, no muscle spasms, Plan: -Requires ICU admission for close monitoring -Continue to monitor electrolytes closely -Currently receiving normal saline -Continue telemetry monitoring -Nephrology is on consult -Patient's status is stable, but is critical Sepsis?, hypotensive episodes, white blood cell count increased to 40.4, lactic acid 3.6, pro-Leif 6, urine unremarkable for infectious source, is requiring minimal Levophed to maintain map greater than 65, chest x-ray unremarkable for infectious source, abdomen is distended and tight, no fevers -Patient has been on steroids since last episode of radiation therapy to his lower thoracic and lumbar spine a few weeks ago which could be an explanation for the leukocytosis Plan: -Continue broad-spectrum antibiotics vancomycin and Primaxin -Follow urine cultures, follow blood cultures -CT of the abdomen pelvis will be obtained -Monitor clinical status, de-escalate antibiotics as needed, so far no infectious source can be found -Continue Levophed with map greater than 65, receiving IV fluids, hopefully de-escalate -Stool studies pending Shock liver: -Patient shows massive transaminitis -AST 2418, ALT 613, ammonia 95, T bili 3.8, INR 2.25 -Patient does have metastatic disease to his liver -Differential includes shock liver from hypotension and/or gemcitabine associated transaminitis Plan: -Hold hepatotoxic agents -Monitor LFTs -We will obtain a CT of the abdomen/ pelvis Anemia, hemoglobin 7.4: Some component dilutional, some component hemolytic given elevated LDH, continue to monitor, transfuse if less than 7 -We will obtain peripheral smear Thrombocytopenia platelet count of 13: some component dilutional, some component hemolytic given elevated LDH, patient has received heparin for dialysis Plan: -Monitor for bleeding -Monitor platelet count -We will obtain peripheral smear Metastatic transitional cell car cinoma to the bon/liver/lmphnodes -Status post chemoradiation -For cycle of gemcitabine was on Tuesday -Patient received radiation therapy to thoracic and lumbar spine, received steroids -Currently has signs of protein calorie malnutrition, dehydration, generalized weakness, cachectic -Patient and family would like to meet with hospice -Currently patient is a full code -Currently patient wants all interventions Attestations Medical Necessity Statement*: Patient proceeding with comfort care 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
--- NOTE | 2019-12-13 14:37 | PC.NURSE ---
[id number] Dr. Cleary spoke with patient and all family members, just want to keep him comfortable.
--- NOTE | 2019-12-13 14:40 | PC.NURSE ---
All family members at bedside, patient appearing in pain at times, not talking, but does raise eyebrows when family speaking to him.
[2019-12-13 14:51] LABS: ABG PH Result 7.03 (7.35-7.45)
--- NOTE | 2019-12-13 22:20 | PC.NURSE ---
patient is on comfort meaures and family is at bedside. morphine and ativan given upon request from family. patient turned for comfort and is now labored breathing. skin very jaundiced as well as sclera. b/p is hypotensive 70's systolic. resp very labored at 15-19. heartrate still sporatic 116-210. rapid atrial fib. ad children at bedside. bereavement cart paced outside door for family.
--- NOTE | 2019-12-13 23:23 | PC.NURSE ---
patients o2 sats are deteriorating and patient has started to have air hunger biots breathing pattern. family at bedside. heart rate still in 190's to 218
--- NOTE | 2019-12-14 00:57 | PC.NURSE ---
oo21 patient no resp no heartrate. patients family at bedside. patients called [facility]. [facility] called not applicable for donation.
--- NOTE | 2019-12-16 15:19 | P.DES_ITS ---
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: (4) Generalized weakness: (5) COPD (chronic obstructive pulmonary disease): Qualifiers: COPD type: unspecified COPD Qualified Code(s): J44.9 - Chronic obstructive pulmonary disease, unspecified Reason for Visit Reason for Visit: Reason For Visit: WEAKNESS Summary Date and Time of : Date of : 12/14/19 Time of : 01:08 Summary: Summary: Bart Contreras is a 64-year-old male with a past medical history of metastatic transitional cell carcinoma of the kidney to bone, stage IV, status post chemoradiation with gemcitabine first cycle on Tuesday, status post radiation therapy to the thoracic and lumbar spine on steroids who presented to the emergency room for back pain, fall, increased swelling of his feet and low blood pressure. Patient was admitted to the intensive care unit for acute hyperkalemia, hyperphosphatemia, hypermagnesemia, hypocalcemia, hyperuricemia, elevated LDH, acute renal failure. Nephrology was consulted, patient had a femoral vein temporary hemodialysis catheter placed by Dr. Burger, patient received inpatient dialysis. In addition patient had evidence of shock liver, massive transaminitis, elevated bilirubin secondary to gemcitabine. In addition he had anemia, thrombocytopenia, elevated ammonia levels. Likely patient's electrolyte and hemogram abnormalities and initial presentation was secondary to gemcitabine and hemolytic uremic syndrome. Generally patient's electrolyte abnormalities were slowly resolving, however his transaminitis was worsening, his anemia was worsening, and his thrombocytopenia was worsening. In addition patient was being treated for sepsis without a clear source due to hypotensive episodes, with broad-spectrum antibiotics, he required pressor support throughout his ICU admission, unfortunately patient's clinical condition did not improve. After discussion with hematology oncology, patient was deemed a poor candidate for further chemotherapy, and discussion were made about hospice. After a long discussion with patient and his family, about hospice, patient and family voiced understanding, all questions answered, agreed to proceed with hospice. After discussion of the risks and benefits, patient agreed to become DNR/DNI, voiced understanding, all questions answered. However patient's clinical condition started to rapidly decline, he became more weak, fatigued, frail, having episodes of confusion, lack of appetite, was more short of breath, more diaphoretic, and continually requiring pressor support. After discussion of the risks and benefits of inpatient comfort care, patient and family voiced understanding, all questions answered, patient and family agreed to inpatient comfort care. Patient 12/06/2019 at 1:08 AM. 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
== END 2019-12-14 01:11 | disposition expired | DRG 640 ==
LOC: ER 07:55 → ICU 10:32
PROVIDERS: Internal Medicine; Admitting Provider Hospitalist; Emergency Provider Emergency Medicine; Family Provider Emergency Medicine Emergency Medical Services; PCP Emergency Medicine Emergency Medical Services; Visit Provider Family Medicine
DX: E87.5 Hyperkalemia (principal); N17.0 Acute kidney failure with tubular necrosis; K72.00 Acute and subacute hepatic failure without coma; E43 Unspecified severe protein-calorie malnutrition; C79.51 Secondary malignant neoplasm of bone; J44.9 Chronic obstructive pulmonary disease, unspecified; E83.39 Other disorders of phosphorus metabolism; E83.41 Hypermagnesemia; E83.51 Hypocalcemia; D64.9 Anemia, unspecified; D69.6 Thrombocytopenia, unspecified; N18.9 Chronic kidney disease, unspecified; F17.210 Nicotine dependence, cigarettes, uncomplicated; Z68.21 Body mass index [BMI] 21.0-21.9, adult; I95.9 Hypotension, unspecified; E87.2 Acidosis
CPT/HCPCS: 12345; 36415; 36416; 36591; 36600; 51702; 71045; 71275; 74177; 76770; 80048; 80053; 80074; 80307; 80500; 81001; 82009; 82140; 82533; 82550; 82803; 82962; 83010; 83605; 83615; 83690; 83735; 84100; 84145; 84484; 84550; 85025; 85362; 85378; 85384; 85610; 85651; 85730; 86140; 86850; 86880; 86900; 87040; 87804; 90935; 93005; 94640; 96374; 96375; 99284; J0692; J0743; J1642; J1644; J1815; J1956; J2060; J2270; J2405; J3370; J3490; J7030; J7050; J7611; J7799; P9047; Q3014; Q9967